=== PATIENT | male | born 1940 | race Caucasian/White ===

== ENCOUNTER 2018-03-24 12:11 | Inpatient (IN) | payer OTHER, MEDICAID ==
[~2018-03-24] VITALS: Ht 198.1 cm; Wt 112.0 kg
[2018-03-24 08:05] VITALS: BP_SYST 170
[~2018-03-24 12:11] MED LIST: GLUCAGON,HUMAN RECOMBINANT 1 MG VIAL IV ONE; LR 1,000 ML IV.SOLN IV ONE; MIDAZOLAM HCL 5 MG/5 ML VIAL IVP ONE; PROPOFOL 200MG/ 20ML VIAL (DIPRIVAN) IV ONE; WATER FOR IRRIGATION,STERILE 1,000 ML IRRIG.SOLN IR ONE
[2018-03-24 12:17] VITALS: BP_SYST 165
[2018-03-24] MEDS ORDERED: NACL 0.9% 1,000 ML IV ONE (12:24)
[2018-03-24] MEDS ORDERED: ONDANSETRON HCL 4 MG/2 ML VIAL IVP ONE (12:30)
[2018-03-24] MEDS ORDERED: KETOROLAC TROMETHAMINE 30 MG VIAL IVP ONE (12:30)
--- NOTE | 2018-03-24 12:35 | NUR ---
Placed in room 06. Placed on cardiac care unit nurse, blood pressure machine and pulse oximeter. To gown for exam. Side rails up.
--- NOTE | 2018-03-24 12:42 | NUR ---
Pt AAOx4, fijian speaking only, c/o 01/13 RLQ pain x 2-3 days accompanying N/V. Skin pink dry and warm, breathing even and unlabored. No other injuries/complaints per pt/noted. Will continue to monitor.
--- NOTE | 2018-03-24 12:48 | NUR ---
ER Dr. Chappell at bedside examining patient.
[2018-03-24 13:03] LABS: ANION GAP 14 (5-15); CHLORIDE 99 mmol/L (98-107); CREATININE 1.11 mg/dL (0.55-1.30); GLUCOSE 138 mg/dL (70-99); POTASSIUM 3.4 mmol/L (3.5-5.1); SODIUM SERUM 136 mmol/L (136-145); UREA NITROGEN, BLOOD 15 mg/dL (8-21)
--- NOTE | 2018-03-24 13:03 | NUR ---
Pt states he is full code
[2018-03-24 13:08] LABS: INR 1.3 (0.80-1.20); PROTHROMBIN TIME 13.2 SECS (9.5-12.5)
[2018-03-24 13:12] LABS: ALANINE AMINOTRANSFERASE 52 U/L (12-78); ALBUMIN 3.7 g/dL (3.4-4.8); ASPARTATE AMINOTRANSFERASE 43 U/L (10-37); LIPASE 46 U/L (73-393); TOTAL BILIRUBIN 3.9 mg/dL (0.0-1.0)
[2018-03-24 13:18] LABS: HEMOGLOBIN 17.8 g/dL (14.0-18.0); MEAN CORPUSCULAR HEMOGLOBIN 29 pg (27-31); MEAN CORPUSCULAR HGB CONC 34 % (32-36); MEAN CORPUSCULAR VOLUME 86 fL (79.0-98.0); PLATELET COUNT (AUTO) 224 K/uL (130-430); RED BLOOD CELL COUNT(AUTO) 6.18 MIL/uL (4.2-6.2); RED CELL DISTRIBUTION WIDTH 13.3 % (9.0-15.0); WHITE BLOOD COUNT (AUTO) 25.7 K/uL (4.8-10.8)
[2018-03-24 13:36] LABS: BAND % (MANUAL) 15 % (0-6); BASOPHILS % (MANUAL) 0 % (0-2); EOSINOPHILS % (MANUAL) 0 % (0-7); LYMPHOCYTES % (MANUAL) 5 % (20-46); MONOCYTES % (MANUAL) 5 % (0-11)
[2018-03-24] MEDS ORDERED: MULT-1117 PO (13:47)
[2018-03-24] MEDS ORDERED: DABI150C PO (13:47)
[2018-03-24] MEDS ORDERED: LISI-600 PO (13:47)
[2018-03-24] MEDS ORDERED: TAMS-11 PO (13:47)
[2018-03-24] MEDS ORDERED: ALBMDI INH (13:47)
[2018-03-24] MEDS ORDERED: XALEYE OP (13:47)
[2018-03-24] MEDS ORDERED: FINA5TAB3 PO (13:47)
[2018-03-24] MEDS ORDERED: POTA8TAB4 PO (13:47)
[2018-03-24] MEDS ORDERED: PROM6.25 PO (13:47)
[2018-03-24] MEDS ORDERED: CETI1TAB2 PO (13:47)
[2018-03-24] MEDS ORDERED: METO25TA3 PO (13:47)
[2018-03-24] MEDS ORDERED: FURO-149 PO (13:47)
--- NOTE | 2018-03-24 13:48 | NUR ---
Medication reconciliation completed with information provided by [facility]. Any prior medication reconciliation on file was reviewed and corrected.
[2018-03-24] MEDS ORDERED: metroNIDAZOLE 500 mg/NS 100 ML IV ONE (14:00)
[2018-03-24] MEDS ORDERED: NACL 0.9% 2,000 ML IV ONE (14:00)
--- NOTE | 2018-03-24 14:30 | NUR ---
Pt mediated tolerated well.
[2018-03-24] MEDS: NACL 0.9% 1,000 ML IV SCH (15:15)
--- NOTE | 2018-03-24 15:29 | NUR ---
ADMISSION NOTE Received patient from ER via luigi, received report from STACY LAURENT. Patient admitted with diagnosis of ACUTE CHOLECYSTITIS. Patient oriented to hospital routine, call light, toileting and safety-patient verbalized understanding.
[2018-03-24] MEDS ORDERED: ACETAMINOPHEN 325 MG TABLET PO PRN (15:30)
[2018-03-24] MEDS ORDERED: ONDANSETRON HCL 4 MG/2 ML VIAL IVP PRN (15:30)
[2018-03-24 15:39] VITALS: BP_SYST 159
--- NOTE | 2018-03-24 15:45 | NUR ---
Patient will be admitted to care of Pauly Nava. Admitted to telemetry unit. Will go to room 119B. Belongings list completed. Summary report printed. Report will be given at bedside.
--- NOTE | 2018-03-24 16:08 | NUR ---
Initial Note patient resting in bed, awake and alert, family at bedside, breathing unlabored on room air, IV fluids infusing, pain upon palpation, educated patient on plan of care and on use of call light for assistance, verbalized understanding, call light and bedside table left within reach, will continue to monitor patient
--- NOTE | 2018-03-24 16:11 | NUR ---
CONSULTATION PAGED/CALLED Reason for Consultation: ASTHMA Person Who was Notified: DR. BARROW HERE AND INFORMED Consulting Physician: DR. BARROW Geriatric Nursing Assistant Specialty: PULMONARY Ordering Physician: DR. Ivanna COX
--- NOTE | 2018-03-24 16:17 | NUR ---
CONSULTATION CALLED Reason for Consultation: ABDOMINAL PAIN Person Who was Notified: MICHELE Consulting Physician: DR. SEVERINO-DR. VARELA LOG YARD MANAGER Ship Unloader Specialty: GI Ordering Physician: DR. ANISA COX
--- NOTE | 2018-03-24 16:30 | NUR ---
CONSULTATION CALLED Reason for Consultation: ATRIAL FIB Person Who was Notified: RUDY Consulting Physician: DR. MANJARREZ Office Support Associate Specialty: CARDIOLOGY Ordering Physician: DR. ANISA COX
--- NOTE | 2018-03-24 16:31 | NUR ---
CONSULTATION PAGED/CALLED Reason for Consultation: ACUTE CHOLECYSTITIS Person Who was Notified: JONAS Consulting Physician: DR. MARKS Broomcorn Thresher Specialty: SURGERY Ordering Physician: DR. ANISA COX
[2018-03-24 16:35] VITALS: BP_SYST 159
--- NOTE | 2018-03-24 16:51 | NUR ---
Dr. Garcia Rounds at this time, spoke with him over the phone earlier to update him with patient's diagnosis, will follow through with MD orders
--- NOTE | 2018-03-24 17:15 | NUR ---
Spoke with Joelle [facility] stated she will come by tomorrow at 1000 for HIDA scan, patient to be NPO after 0600 and no pain meds after 0600. Will inform shift manager nurse
[2018-03-24 17:30] VITALS: BP_SYST 150
[2018-03-24] MEDS: MORPHINE 2 MG/ML INJ. SYRINGE IVP PRN (17:38)
--- NOTE | 2018-03-24 17:40 | NUR ---
Antibiotics/Pain Meds/Zofran administered per protocol, educated patient regarding meds, verbalized understanding, tolerated well, IV site remains patent, safety precautions remain in place, bedside table and call light left within reach, will continue to monitor patient
[2018-03-24] MEDS: PIPERACILLIN/TAZO 3.375 GM in NS 50 ML IV SCH ×2 (18:04→23:51)
--- NOTE | 2018-03-24 18:55 | NUR ---
Closing Note patient resting in bed, eyes closed, breathing unlabored on room air, IV fluids infusing at this time, site patent, patient still on NPO status, safety precautions remain in place, bedside table and call light left within reach, will endorse to windows migration technician nurse
--- NOTE | 2018-03-24 19:45 | NUR ---
Opening notes Patient is resting in bed. Shows no signs of distress. Breathing is even and unlabored on room air. No needs at this moment. Bed is in the lowest position, bed rails up x3, bed alarm is on, call light is with the patient.
[2018-03-24 20:00] VITALS: BP_SYST 170
[2018-03-24] MEDS: ALBUTEROL SULFATE 0.083% 2.5 MG/3 ML VIAL.NEB INH SCH (20:00)
[2018-03-24] MEDS: IPRATROPIUM BROM 0.5 MG/2.5 ML VIAL.NEB (ATROVENT) INH SCH (20:00)
[2018-03-24] MEDS: CARVEDILOL 3.125 MG TABLET (COREG) PO SCH (20:51)
[2018-03-24] MEDS: MORPHINE 4 MG/ML INJ. SYRINGE IVP PRN (20:52)
[2018-03-24] MEDS: LATANOPROST 2.5 ML DROPS (XALATAN) OP SCH (20:54)
--- NOTE | 2018-03-24 20:55 | NUR ---
IV Pain meds Patient complains of 9/10 pain to abdomen. Gave Morphine 4 mg IVP for severe pain. Patient tolerated well. Shows no signs of allergic reaction.
--- NOTE | 2018-03-24 23:00 | NUR ---
RN rounds Patient is asleep in bed. Shows no signs of distress. Breathing is even and unlabored. Safety precautions in place.
[2018-03-25 00:54] VITALS: BP_SYST 121
--- NOTE | 2018-03-25 01:10 | NUR ---
RN rounds Patient is asleep in bed. Shows no signs of distress. Breathing is even and unlabored. No needs at this moment. Safety precautions in place.
--- NOTE | 2018-03-25 03:20 | NUR ---
RN rounds Patient is resting comfortably in bed. Shows no signs of distress. Does not complain of pain. Breathing is even and unlabored on room air. Safety precautions are in place.
[2018-03-25] MEDS: NACL 0.9% 1,000 ML IV SCH ×3 (04:41→23:12)
[2018-03-25] MEDS: MORPHINE 2 MG/ML INJ. SYRINGE IVP PRN ×2 (04:45→16:38)
--- NOTE | 2018-03-25 04:45 | NUR ---
RN rounds Patient complains of 4/10 pain to the abdomen. Gave Morphine 2 mg IVP for moderate pain. Patient tolerated well. No signs of allergic reaction noted.
[2018-03-25] MEDS: PIPERACILLIN/TAZO 3.375 GM in NS 50 ML IV SCH ×4 (05:33→23:07)
--- NOTE | 2018-03-25 06:45 | NUR ---
Closing notes Patient is resting comfortably in bed. Shows no signs of distress. Does not complain of pain. No needs at this moment. Breathing is even and unlabored on room air. Practice guidelines met throughout the shift. Bed is in the lowest position, bed rails up x3, bed alarm is on, call light is with the patient.
--- NOTE | 2018-03-25 07:00 | NUR ---
IV RE-INSERTION: Complaining of pain to IV site. Restarted on the left forearm with 20 gauge catheter. Successful after 1 attempt. Resumed current IVF of NS and regulated @ 75 per hour. Will observe for any signs of infiltration.
--- NOTE | 2018-03-25 07:25 | NUR ---
Opening Note patient resting in bed, awake and alert, no complaints of pain at this time, breathing unlabored on room air, IV fluids infusing at this time, educated patient on use of call light for assistance, verbalized understanding, call light and bedside table left within reach, safety precautions in place, will continue to monitor patient
[2018-03-25] MEDS: ALBUTEROL SULFATE 0.083% 2.5 MG/3 ML VIAL.NEB INH SCH ×3 (07:28→20:03)
[2018-03-25] MEDS: IPRATROPIUM BROM 0.5 MG/2.5 ML VIAL.NEB (ATROVENT) INH SCH ×3 (07:28→20:03)
--- NOTE | 2018-03-25 07:40 | NUR ---
Dr. Gail Mahajan stated placed order for MRI MRCP because patient does not have pacemaker, stated to clarify with Dr. Garcia if HIDA still necessary, will ask Addendum: 03/25/18 at 0751 by Alissa Mercado RN also stated when not on NPO status for procedure may have clear liquids
[2018-03-25 07:44] LABS: BASOPHILS % (AUTO) 0.2 % (0.0-2.0); HEMATOCRIT 45.4 % (36-54); LYMPHOCYTES # (AUTO) 0.5 K/uL (1.0-5.5); LYMPHOCYTES % (AUTO) 3.8 % (20.5-51.5); MEAN CORPUSCULAR HEMOGLOBIN 29 pg (27-31); MEAN CORPUSCULAR HGB CONC 33 % (32-36); MEAN CORPUSCULAR VOLUME 86 fL (79.0-98.0); MONOCYTES # (AUTO) 0.4 K/uL (0.0-1.0); MONOCYTES % (AUTO) 3.1 % (1.7-9.3); NEUTROPHILS # (AUTO) 13.5 K/uL (1.8-7.7); PLATELET COUNT (AUTO) 186 K/uL (130-430); RED BLOOD CELL COUNT(AUTO) 5.26 MIL/uL (4.2-6.2); RED CELL DISTRIBUTION WIDTH 13.7 % (9.0-15.0); WHITE BLOOD COUNT (AUTO) 14.4 K/uL (4.8-10.8)
--- NOTE | 2018-03-25 07:47 | NUR ---
Spoke with Dr. Garcia asked if he still wanted HIDA scan, cancelled order, stated to keep patient NPO but okay to give PO medications with small sips of water, will implement
[2018-03-25 07:53] LABS: ALANINE AMINOTRANSFERASE 42 U/L (12-78); ALBUMIN 2.7 g/dL (3.4-4.8); ANION GAP 10 (5-15); ASPARTATE AMINOTRANSFERASE 38 U/L (10-37); CALCIUM 9.1 mg/dL (8.4-11.0); CHLORIDE 106 mmol/L (98-107); CREATININE 0.97 mg/dL (0.55-1.30); GLUCOSE 110 mg/dL (70-99); SODIUM SERUM 138 mmol/L (136-145); TOTAL BILIRUBIN 2.6 mg/dL (0.0-1.0); UREA NITROGEN, BLOOD 19 mg/dL (8-21)
[2018-03-25 07:56] LABS: NEUTROPHILS % (AUTO) 92.9 % (40.0-70.0)
[2018-03-25 08:02] VITALS: BP_SYST 143
--- NOTE | 2018-03-25 08:15 | NUR ---
MRI questionnaire Signed used blue phone mill set up, will ask Dr. Martinez for medication for anxiety for patient because of claustrophobia
[2018-03-25] MEDS: TAMSULOSIN HCL 0.4 MG CAP PO SCH (09:00)
[2018-03-25] MEDS: POTASSIUM CHLORIDE 10 MEQ TAB.PRT.SR PO SCH (09:00)
[2018-03-25] MEDS: CARVEDILOL 3.125 MG TABLET (COREG) PO SCH ×2 (09:00→21:42)
[2018-03-25] MEDS: FUROSEMIDE 40 MG TABLET PO SCH (09:00)
[2018-03-25] MEDS: FINASTERIDE 5 MG TABLET (PROSCAR) PO SCH (09:00)
[2018-03-25] MEDS: LISINOPRIL 20 MG TABLET PO SCH (09:00)
--- NOTE | 2018-03-25 09:30 | NUR ---
Spoke with MRI stated okay to give morphine prior to MRI but patient still has to be NPO, still awaiting Dr. Martinez call back for PRN anxiety medication for claustrophobia
--- NOTE | 2018-03-25 09:33 | NUR ---
Paged Dr. Martinez again at this time, awaiting call back
[2018-03-25] MEDS: NITROGLYCERIN 0.2 MG/HR PATCH.TD24 TD SCH (09:41)
[2018-03-25] MEDS: PANTOPRAZOLE SODIUM 40 MG/VIAL (PROTONIX) IVP SCH (09:42)
[2018-03-25] MEDS: MORPHINE 4 MG/ML INJ. SYRINGE IVP PRN (09:42)
--- NOTE | 2018-03-25 09:44 | NUR ---
Nutrition Update Tushar Scale 18 noted. Pt admitted for acute cholecystitis. Diet: NPO BMI: 28.5 kg/m2 RD to follow per nutrition care standards.
[2018-03-25] MEDS ORDERED: LORazepam 2 MG/ML VIAL IVP PRN (09:45)
[2018-03-25] MEDS ORDERED: LORazepam 2 MG/ML VIAL IVP ONE (10:00)
--- NOTE | 2018-03-25 11:00 | NUR ---
Ativan administered educated patient using goat herder phone, verbalized understanding, IV site patent, fluids infusing as well, safety precautions remain in place, bedside table and call light left within reach, will continue to monitor patient
--- NOTE | 2018-03-25 11:30 | NUR ---
Patient Off Unit at this time for MRI MRCP, will assess when he returns
[2018-03-25 12:15] VITALS: BP_SYST 120
--- NOTE | 2018-03-25 13:40 | NUR ---
Patient Resting in Bed at this time, visitors at bedside, stated pain is controlled at this time, at a 2/10, breathing unlabored on room air, IV fluids infusing at this time, safety precautions remain in place, bedside table and call light left within reach, will continue to monitor patient
--- NOTE | 2018-03-25 13:47 | NUR ---
Dr. Garcia At nurses' station stated bilirubin too high to do anything at this point and will wait until after assessing labs tomorrow, stated may give patient clear liquid diet
--- NOTE | 2018-03-25 14:30 | NUR ---
Provided Patient with Water/Jello tolerated well, no complaints of nausea or pain at this time, breathing unlabored on room air and IV fluids infusing, safety precautions remain in place, bedside table and call light left within reach, will continue to monitor patient
[2018-03-25 16:05] VITALS: BP_SYST 131
--- NOTE | 2018-03-25 16:07 | NUR ---
Paged Dr. Ventura at this time for patient's heart rate, will await call back
[2018-03-25] MEDS ORDERED: METOPROLOL SUCCINATE 25 MG TAB.SR.24H (TOPROL XL) PO ONE (16:30)
--- NOTE | 2018-03-25 17:04 | NUR ---
Ju educated patient on medication, verbalized understanding, IV site remains patent, patient sitting up in bed, no complaints of pain, safety precautions remain in place, bedside table and call light left within reach, will continue to monitor patient
--- NOTE | 2018-03-25 18:05 | NUR ---
Patient Eating clear liquid tray at this time, tolerating well, states his pain is 0/10. breathing unlabored on room air, IV fluids infusing, site patent, safety precautions remain in place, bedside table and call light left within reach, will continue to monitor patient
--- NOTE | 2018-03-25 18:50 | NUR ---
Closing Note patient resting in bed, family at bedside, no signs of distress, IV fluids infusing at this time, safety precautions remain in place, bedside table and call light left within reach, will endorse to police shift commander nurse
--- NOTE | 2018-03-25 19:42 | NUR ---
Initial note: Received handoff report from dayshift RN. Patient is resting in bed with eyes closed. Family members are present at bedside. IV noted to left forearm with IV fluids infusing well. Safety and fall precautions in place. Call light is with patient. Will continue with plan of care.
[2018-03-25 20:50] VITALS: BP_SYST 129
--- NOTE | 2018-03-25 21:42 | NUR ---
Medication: Administered scheduled medications per MD order at this time. Provided education regarding indications and side effects, patient verbalized understanding. Safety and fall precautions in place. Call light is with patient Will continue to monitor.
[2018-03-25] MEDS: LATANOPROST 2.5 ML DROPS (XALATAN) OP SCH (21:43)
[2018-03-25] MEDS: METOPROLOL SUCCINATE 25 MG TAB.SR.24H (TOPROL XL) PO SCH (22:26)
--- NOTE | 2018-03-25 23:29 | NUR ---
Rounds: Patient is resting in bed with eyes closed, not showing any acute distress. Patient tolerating room air, respirations are even and unlabored. Safety and fall precautions in place. Call light is with patient. Will continue to monitor.
[2018-03-26 01:04] VITALS: BP_SYST 132
--- NOTE | 2018-03-26 01:22 | NUR ---
Rounds: Patient is asleep in bed, no signs or symptoms of acute distress noted. Respirations are even and unlabored on room air. Call light is with patient. Safety, fall precautions in place. Will continue to monitor.
[2018-03-26] MEDS: MORPHINE 4 MG/ML INJ. SYRINGE IVP PRN ×2 (03:16→12:42)
--- NOTE | 2018-03-26 03:16 | NUR ---
Pain management: Patient complained of 8/10 pain to right lower abdominal quadrant. PRN Morphine indicated. Education provided regarding indications and side effects of medication, patient verbalized understanding. Administered medication intravenously med MD order, patient tolerated well. Safety, fall precautions in place. Will continue monitoring.
--- NOTE | 2018-03-26 05:20 | NUR ---
Rounds: Patient is asleep in bed, does not show any signs or symptoms of acute distress. Breathing is unlabored with even chest rise and fall. Safety, fall precautions in place. Call light is with patient. Will continue monitoring.
[2018-03-26] MEDS: PIPERACILLIN/TAZO 3.375 GM in NS 50 ML IV SCH ×4 (05:25→23:41)
[2018-03-26 06:18] LABS: HEMATOCRIT 41.9 % (36-54); HEMOGLOBIN 13.5 g/dL (14.0-18.0); MEAN CORPUSCULAR HEMOGLOBIN 28 pg (27-31); MEAN CORPUSCULAR HGB CONC 32 % (32-36); MEAN CORPUSCULAR VOLUME 86 fL (79.0-98.0); PLATELET COUNT (AUTO) 181 K/uL (130-430); RED BLOOD CELL COUNT(AUTO) 4.88 MIL/uL (4.2-6.2); RED CELL DISTRIBUTION WIDTH 13.6 % (9.0-15.0); WHITE BLOOD COUNT (AUTO) 11.4 K/uL (4.8-10.8)
[2018-03-26 06:26] LABS: ALANINE AMINOTRANSFERASE 42 U/L (12-78); ALBUMIN 2.5 g/dL (3.4-4.8); ANION GAP 8 (5-15); ASPARTATE AMINOTRANSFERASE 41 U/L (10-37); CALCIUM 8.9 mg/dL (8.4-11.0); CHLORIDE 107 mmol/L (98-107); CREATININE 1.17 mg/dL (0.55-1.30); GLUCOSE 117 mg/dL (70-99); POTASSIUM 3.7 mmol/L (3.5-5.1); SODIUM SERUM 137 mmol/L (136-145); TOTAL BILIRUBIN 1.7 mg/dL (0.0-1.0); UREA NITROGEN, BLOOD 36 mg/dL (8-21)
--- NOTE | 2018-03-26 06:42 | NUR ---
Closing note: Patient is awake, no acute distress noted. IV fluids infusing well to patient's left forearm IV site. Patient's breathing remains even and unlabored on room air. Site remains patent and benign. All needs met and attended to. Call light is with patient. Safety, fall precautions observed throughout shift. Will endorse care to dayshift RN.
[2018-03-26] MEDS: ALBUTEROL SULFATE 0.083% 2.5 MG/3 ML VIAL.NEB INH SCH ×3 (07:24→20:36)
[2018-03-26] MEDS: IPRATROPIUM BROM 0.5 MG/2.5 ML VIAL.NEB (ATROVENT) INH SCH ×3 (07:24→20:36)
--- NOTE | 2018-03-26 07:40 | NUR ---
OPENING NOTE: MORNING REPORT WAS TAKEN FROM PROJECT DEVELOPER NURSE. PATIENT IS ALERT AND ORIENTED. VITALS AND MORNING ASSESSMENT WAS DONE. PATIENT NOT COMPLAINING OF PAIN OR SHORTNESS OF BREATH. PATIENT ON ROOM AIR. PATIENT HAS A LITTLE COUGH. PATIENT NOT COMPLAINING OF NAUSEA OR VOMITING. PATIENT HAS SOME CONSTIPATION. BED ALARM IS ON AND CALL LIGHT IS IN REACH. BED IN LOWEST POSITION WITH SIDE RAILS UP. WILL CONTINUE TO MONITOR.
[2018-03-26 08:06] VITALS: BP_SYST 140
[2018-03-26 08:13] LABS: ATYPICAL LYMPHOCYTES % 0 % (0-0); BAND % (MANUAL) 36 % (0-6); BASOPHILS % (MANUAL) 0 % (0-2); EOSINOPHILS % (MANUAL) 0 % (0-7); LYMPHOCYTES % (MANUAL) 2 % (20-46); METAMYELOCYTES % 3 % (0-0); MONOCYTES % (MANUAL) 3 % (0-11); MYELOCYTES % 3 % (0-0)
[2018-03-26] MEDS: PANTOPRAZOLE SODIUM 40 MG/VIAL (PROTONIX) IVP SCH (09:16)
[2018-03-26] MEDS: METOPROLOL SUCCINATE 25 MG TAB.SR.24H (TOPROL XL) PO SCH ×2 (09:16→20:49)
[2018-03-26] MEDS: LISINOPRIL 20 MG TABLET PO SCH (09:16)
[2018-03-26] MEDS: POTASSIUM CHLORIDE 10 MEQ TAB.PRT.SR PO SCH (09:16)
[2018-03-26] MEDS: TAMSULOSIN HCL 0.4 MG CAP PO SCH (09:17)
[2018-03-26] MEDS: CARVEDILOL 3.125 MG TABLET (COREG) PO SCH ×2 (09:17→20:49)
[2018-03-26] MEDS: FUROSEMIDE 40 MG TABLET PO SCH (09:17)
[2018-03-26] MEDS: FINASTERIDE 5 MG TABLET (PROSCAR) PO SCH (09:18)
[2018-03-26] MEDS: NITROGLYCERIN 0.2 MG/HR PATCH.TD24 TD SCH (09:18)
--- NOTE | 2018-03-26 09:22 | NUR ---
NOTE: GAVE PATIENT MORNING MEDICATIONS. AT BEDSIDE. PATIENT SWALLOWED MORNING MEDS WITH OUT COMPLICATION. PATIENT JUST COMPLAINING OF CONSTIPATION. PATIENT STILL WEAK. WILL LET DR KNOW. PATIENT HAS NO FURTHER REQUESTS AT MOMENT. WILL CONTINUE TO MONITOR.
[2018-03-26] MEDS ORDERED: NA PHOS,M-B/NA PHOS,DI-BA 118 ML (FLEET ENEMA) RC ONE (10:45)
--- NOTE | 2018-03-26 10:45 | NUR ---
NOTE: DR MARKS HERE TO SEE PATIENT. LET DR KNOW PATIENT COMPLAINING OF CONSTIPATION. DR ORDERED ENEMA. GAVE PATIENT ENEMA. PATIENT LAYING ON SIDE WAITING TO USE RESTROOM. CALL LIGHT IS IN REACH. WILL CONTINUE TO MONITOR.
--- NOTE | 2018-03-26 11:55 | NUR ---
IV: PATIENT TRIED TO GET OUT OF BED TO USE BEDSIDE COMMODE. PATIENT PULLED IV OUT. PATIENT HAD BOWEL MOVEMENT. PATIENT STILL HAVING BOWEL MOVEMENT AND HELPED BY CREATIVE SERVICES SPECIALIST. WILL CONTINUE TO MONITOR AND PUT IV IN AFTER.
[2018-03-26 12:00] VITALS: BP_SYST 140; BP_SYST 83
--- NOTE | 2018-03-26 12:46 | NUR ---
NOTE: PATIENT WAS COMPLAINING OF PAIN. GAVE PATIENT PAIN MEDICATION. GAVE PATIENT SCHEDULED MEDICATION. IV WAS PUT IN BY AN. LEFT FOREARM 22G. FLUIDS ARE INFUSING. FAMILY AT BEDSIDE. WILL CONTINUE TO MONITOR.
--- NOTE | 2018-03-26 14:58 | NUR ---
SURGERY: PATIENT LEAVING NOW TO SURGERY. FAMILY AT BEDSIDE.
[2018-03-26] MEDS ORDERED: MIDAZOLAM HCL 5 MG/5 ML VIAL IVP ONE (15:00)
[2018-03-26] MEDS ORDERED: fentaNYL CITRATE 250 MCG/5 ML AMP IV ONE (15:00)
[2018-03-26] MEDS ORDERED: DEXAMETHASONE SOD PHOSPHATE 4 MG/ML VIAL IVP ONE (15:00)
[2018-03-26] MEDS ORDERED: ONDANSETRON HCL 4 MG/2 ML VIAL IVP ONE (15:00)
[2018-03-26] MEDS ORDERED: ROCURONIUM BROMIDE 10 MG/ML (ZEMURON) IV ONE (15:00)
[2018-03-26] MEDS ORDERED: SEVOFLURANE 15 MIN GAS INH ONE (15:00)
[2018-03-26] MEDS ORDERED: LR 1,000 ML IV.SOLN IV ONE (15:00)
[2018-03-26] MEDS ORDERED: KETOROLAC TROMETHAMINE 30 MG VIAL IVP ONE (15:00)
[2018-03-26] MEDS ORDERED: PROPOFOL 200MG/ 20ML VIAL (DIPRIVAN) IV ONE (15:00)
[2018-03-26] MEDS ORDERED: SUGAMMADEX SODIUM 200 MG/2 ML VIAL IV ONE (15:00)
[2018-03-26 15:37] LABS: BILIRUBIN,URINE NEGATIVE (NEGATIVE); BLOOD, URINE 1+ (NEGATIVE); CLARITY/URINE SL CLOUDY (CLEAR); COLOR,URINE AMBER (YELLOW); GLUCOSE,URINE NEGATIVE (NEGATIVE); KETONES,URINE NEGATIVE (NEGATIVE); LEUKOCYTE ESTERASE ,URINE NEGATIVE (NEGATIVE); NITRITE, URINE NEGATIVE (NEGATIVE); PH,URINE 5.5 (5.0-8.0); PROTEIN URINE 1+ (NEGATIVE)
[2018-03-26] MEDS ORDERED: LR 1,000 ML IV SCH (16:09)
[2018-03-26] MEDS ORDERED: HYDROmorphone 1 MG INJ. 1 MG/ML AMPUL IVP PRN (16:15)
[2018-03-26] MEDS ORDERED: MEPERIDINE HCL/PF 25 MG/ML DISP.SYRIN IVP PRN (16:15)
[2018-03-26] MEDS ORDERED: HYDROmorphone 2 MG/ML VIAL IVP PRN ×2 (16:15)
[2018-03-26 16:23] LABS: BACTERIA,URINE FEW /HPF (None Seen); COARSE GRANULAR CASTS,URINE 0-10 /LPF (None Seen); MUCUS,URINE 1+ /LPF (None Seen); RBC,URINE 0-3 /HPF (0-3); WBC,URINE 0-3 /HPF (0-3)
[2018-03-26 16:24] LABS: URINE AMORPHOUS URATE 1+ /HPF (None Seen)
--- NOTE | 2018-03-26 17:50 | NUR ---
PATIENT BACK FROM SURGERY. PATIENT HOOKED UP TO VITALS. PATIENT ON 2L NC. PATIENT NOT COMPLAINING OF PAIN AT MOMENT. FAMILY AT BEDSIDE. WILL CONTINUE TO MONITOR.
[2018-03-26] MEDS: NACL 0.9% 1,000 ML IV SCH (18:30)
[2018-03-26] MEDS: MORPHINE 2 MG/ML INJ. SYRINGE IVP PRN (18:44)
--- NOTE | 2018-03-26 18:55 | NUR ---
CLOSING NOTE: PATIENT HAS FLUIDS INFUSING. GAVE SCHEDULED MEDICATION. PATIENT WAS COMPLAINING OF PAIN. GAVE PATIENT PAIN MEDICATION. PATIENT ON 2L NC NOT COMPLAINING OF SHORTNESS OF BREATH. PATIENT'S DRESSING WAS GETTING SATURATED. PUT MORE GAUZE AND REENFORCED. DRAINED MARCI DRAIN. FAMILY AT BEDSIDE. BED ALARM IS ON AND CALL LIGHT IS IN REACH. WILL CONTINUE ENDORSE CARE TO GRAPE GROWER NURSE.
[2018-03-26 19:17] VITALS: BP_SYST 90
--- NOTE | 2018-03-26 19:50 | NUR ---
initial notes: pt is awake,alert, oriented x 3. Danish speaking. no pain at this time. no distress. vital sign are with in normal limit. pt has ivf ongoing to left fore arm gauge 22- infusing well. dressing to the abdomen are cdi. pt has liz drain- with red drainage-intact and in negative pressure. scd on bilateral feet. explain poc of care to daughter. needs attended. call ight in reach. side rails up. will monitor.
--- NOTE | 2018-03-26 20:17 | NUR ---
called dr. vásquez. spoke to md ask diet order. md order clear liquid. also report to md how much liz drain is out.
[2018-03-26 20:27] VITALS: BP_SYST 110
--- NOTE | 2018-03-26 20:40 | NUR ---
RT at bedside giving breathinfg treatment. rt will instruct the pt on how to use IS>
[2018-03-26] MEDS: LATANOPROST 2.5 ML DROPS (XALATAN) OP SCH (20:48)
--- NOTE | 2018-03-26 22:00 | NUR ---
notes: pt is resting. no sign of pain. no sob. no coughing at this time. stable. ivf infusing well. daughter at bedside. bed alarm on. call light in reach. side rails up. will continue to monitor.
[2018-03-26 23:43] VITALS: BP_SYST 103
--- NOTE | 2018-03-26 23:54 | NUR ---
notes: pt is wakes up when iv antibiotic given. vital sign are with normal limit. no pain. lzi drain to 80 cc, red drainage. needs attended. call light in reach. daughter at bedside. will continue to monitor.
[2018-03-27 00:02] VITALS: BP_SYST 110
--- NOTE | 2018-03-27 00:15 | NUR ---
PT IS AWAKE HE ASKED SOME FOOD HE GOT JELLO AND PUDDING.PT BACK TI SLEEP NOW.WILL CONTINUE OF MONITORING.
--- NOTE | 2018-03-27 02:15 | NUR ---
notes: pt is awake, alert. no distress. no pain. assisted to use urinal. stable on monitor. I.S. done by pt. needs attended. call light in reach. will continue to monitor.
[2018-03-27 04:22] VITALS: BP_SYST 119
--- NOTE | 2018-03-27 04:23 | NUR ---
notes: pt is awake, alert. complain of pain 8/10, educate pt and daughter about pain medication side effects. vital sign are stable. needs attended. call light in reach. will continue to monitor.
[2018-03-27] MEDS: MORPHINE 4 MG/ML INJ. SYRINGE IVP PRN ×2 (04:26→18:09)
[2018-03-27] MEDS: PIPERACILLIN/TAZO 3.375 GM in NS 50 ML IV SCH ×3 (05:48→18:46)
--- NOTE | 2018-03-27 05:50 | NUR ---
notes: pt is wakes up during round. no pain. no sob. iv antibiotic given. stable. liz drain empty. needs attended. call light in reach. daughter at bedside. will continue to monitor.
[2018-03-27 06:12] LABS: EOSINOPHILS % (AUTO) 0.1 % (0.0-4.0); HEMOGLOBIN 13.1 g/dL (14.0-18.0); MEAN CORPUSCULAR HEMOGLOBIN 28 pg (27-31); MEAN CORPUSCULAR HGB CONC 33 % (32-36); MONOCYTES # (AUTO) 0.7 K/uL (0.0-1.0); RED BLOOD CELL COUNT(AUTO) 4.66 MIL/uL (4.2-6.2)
[2018-03-27 06:23] LABS: ALANINE AMINOTRANSFERASE 82 U/L (12-78); ALBUMIN 2.3 g/dL (3.4-4.8); ANION GAP 12 (5-15); ASPARTATE AMINOTRANSFERASE 137 U/L (10-37); CALCIUM 8.8 mg/dL (8.4-11.0); CHLORIDE 106 mmol/L (98-107); GLUCOSE 121 mg/dL (70-99); LIPASE 72 U/L (73-393); POTASSIUM 3.4 mmol/L (3.5-5.1); SODIUM SERUM 140 mmol/L (136-145); TOTAL BILIRUBIN 1.7 mg/dL (0.0-1.0); UREA NITROGEN, BLOOD 40 mg/dL (8-21)
[2018-03-27 07:03] LABS: HEMATOCRIT 39.7 % (36-54); MEAN CORPUSCULAR VOLUME 85 fL (79.0-98.0); WHITE BLOOD COUNT (AUTO) 10.5 K/uL (4.8-10.8)
[2018-03-27 07:04] LABS: LYMPHOCYTES # (AUTO) 0.4 K/uL (1.0-5.5); MONOCYTES % (AUTO) 6.6 % (1.7-9.3); NEUTROPHILS # (AUTO) 9.4 K/uL (1.8-7.7); PLATELET COUNT (AUTO) 155 K/uL (130-430); RED CELL DISTRIBUTION WIDTH 13.8 % (9.0-15.0)
[2018-03-27 07:11] LABS: NEUTROPHILS % (AUTO) 89.3 % (40.0-70.0)
--- NOTE | 2018-03-27 07:30 | NUR ---
closing: pt is awake , alert. complain of slight pain. stable. ivf infusing well. liz is intact. liz site is wet again with blood after reinforce dressing. needs attended the whole shift. bed side report given to am fuad
[2018-03-27 07:45] VITALS: BP_SYST 90
[2018-03-27] MEDS: ALBUTEROL SULFATE 0.083% 2.5 MG/3 ML VIAL.NEB INH SCH ×3 (07:48→20:53)
[2018-03-27] MEDS: IPRATROPIUM BROM 0.5 MG/2.5 ML VIAL.NEB (ATROVENT) INH SCH ×3 (07:48→20:53)
--- NOTE | 2018-03-27 07:50 | NUR ---
AM ASSESSMENT RECEIVED PTIN BED ALERT/ORINETEDX4. TURKMEN SPEAKING. C/O OF ABD PAIN 09/12. RES EVEN AND UNLABORED. SITTING IN BED. IVF FLUID NS AT 75 INFUISNG WELL. IV SIDE L FA #22 PATENT.NO S/SOF INFILTRATION NOTED. . AND DRESSING RT SIDE WITH MARCI SATURATED WITH DARK RED BROWN COLOR DRAINAGE .REINFORCED RT SIDE ABD DRESSING WITH ABD PAD. MARCI DRAIN EMPTIED 100 ML OF DARK BROWN COLOR DRAINAGE. POC DISCUSSED WITH DAUGHTER AT BED SIDE. VERBALIZED UNDERSTANDING. SAFTY AND FALL PRECAUTIONS MAINTAINED. WILL CONTINUE TO MONITOR
[2018-03-27] MEDS: CARVEDILOL 3.125 MG TABLET (COREG) PO SCH ×2 (09:00→21:00)
[2018-03-27] MEDS: LISINOPRIL 20 MG TABLET PO SCH (09:00)
--- NOTE | 2018-03-27 09:00 | NUR ---
md visit seen by dr vásquez . informed about liz drainage output. dressing changed by nilesh. pt tolerated well. not in acute distress
[2018-03-27] MEDS: POTASSIUM CHLORIDE 10 MEQ TAB.PRT.SR PO SCH (09:23)
[2018-03-27] MEDS: TAMSULOSIN HCL 0.4 MG CAP PO SCH (09:23)
[2018-03-27] MEDS: FINASTERIDE 5 MG TABLET (PROSCAR) PO SCH (09:23)
[2018-03-27] MEDS: PANTOPRAZOLE SODIUM 40 MG/VIAL (PROTONIX) IVP SCH (09:24)
[2018-03-27] MEDS ORDERED: NS 250 ML IV ONE (09:45)
[2018-03-27] MEDS: MORPHINE 2 MG/ML INJ. SYRINGE IVP PRN (10:46)
--- NOTE | 2018-03-27 10:57 | NUR ---
pain pt c/o of abd pain 08/13. mediacated with morphine 2 mg as ordered. will reassess pt for pain again
[2018-03-27 12:00] VITALS: BP_SYST 112
[2018-03-27] MEDS: NACL 0.9% 1,000 ML IV SCH ×2 (14:24→22:43)
--- NOTE | 2018-03-27 15:09 | NUR ---
rt liz ryan dressing rt liz drain dressing saturated dressing changed. liz drain intact. liz drain emptied 110 ml dark red brown color drainage noted.pt repostioned. denies any pain at tis time.not in acute distress. will continue to monitor
[2018-03-27 16:00] VITALS: BP_SYST 117
--- NOTE | 2018-03-27 16:00 | NUR ---
md called called dr vásquez for liz drain output since morning 310 ml.red brown color drainage.informed dr vásquez.new order received .will continu to monitor
[2018-03-27 16:28] LABS: MEAN CORPUSCULAR HEMOGLOBIN 28 pg (27-31); MEAN CORPUSCULAR VOLUME 86 fL (79.0-98.0)
[2018-03-27 16:31] LABS: HEMATOCRIT 38.2 % (36-54); HEMOGLOBIN 12.4 g/dL (14.0-18.0); MEAN CORPUSCULAR HGB CONC 32 % (32-36); PLATELET COUNT (AUTO) 155 K/uL (130-430); RED BLOOD CELL COUNT(AUTO) 4.46 MIL/uL (4.2-6.2); RED CELL DISTRIBUTION WIDTH 14.1 % (9.0-15.0); WHITE BLOOD COUNT (AUTO) 11.1 K/uL (4.8-10.8)
[2018-03-27 16:41] LABS: ALBUMIN 2.1 g/dL (3.4-4.8); BILIRUBIN,DIRECT 0.8 mg/dL (0.0-0.3); TOTAL BILIRUBIN 1.6 mg/dL (0.0-1.0)
--- NOTE | 2018-03-27 17:01 | NUR ---
rounds pt stable resting comfortable. not in acute distress at bed side. will continue to monitor
[2018-03-27 17:05] LABS: BAND % (MANUAL) 18 % (0-6); BASOPHILS % (MANUAL) 0 % (0-2); EOSINOPHILS % (MANUAL) 0 % (0-7); LYMPHOCYTES % (MANUAL) 7 % (20-46); MONOCYTES % (MANUAL) 4 % (0-11)
--- NOTE | 2018-03-27 18:09 | NUR ---
pain pt c/o of pain abd 11/12. medicated with morphine 4 mg ivp as ordered. iv fluid infusing well. rt liz dressing saturated . new dressing applied. dressing clean dry and intact not in acute distress. will continue to monitor
--- NOTE | 2018-03-27 19:00 | NUR ---
closing notes pt stable pain better. resting comfortably . not in acute distress,ivf infuaing well. report given to scene shifter RN
--- NOTE | 2018-03-27 19:05 | NUR ---
OPENING NOTE RECEIVED ENDORSEMENT REPORT FROM DAY SHIFT NURSE GERA AT BEDSIDE. PT IS AOX4, RESTING COMFORTABLY IN BED WITH EYES OPEN. PT'S FAMILY AT BEDSIDE. CHEST RISE EVEN AND UNLABORED. NO SOB NOTED, NO DISTRESS NOTED. PT DENIED PAIN AT THIS TIME. PT'S IV ON LEFT FA 22G. IV CLEAN DRY AND INTACT. IVF INFUSING WELL. PT'S SKIN DRY AND CLEAN. DRESSING ON RIGHT ABD, DRESSING CLEAN, DRY AND INTACT. MARCI DRAIN ON RIGHT ABD, CLEAN AND INTACT. MARCI DRAIN DRAINING TO GRAVITY. DRAINAGE DARK RED FLUID. LEADS AND HEART MONITOR IN PLACE AND INTACT. SCDS ON ORDERED FOR DVT PROPHYLAXIS. VITAL SIGNS WNL. PT INSTRUCTED HOW TO USE CALL LIGHT AND ROOM PHONE, PT VERBALIZED UNDERSTANDING. PT ORIENTED TO HOSPITAL ROOM AND EDUCATED ON SAFETY, PT INSTRUCTED TO USE CALL LIGHT TO CALL FOR ASSISTANCE, PT VERBALIZED UNDERSTANDING. SAFETY MEASURES IN PLACE CALL LIGHT/ROOM PHONE WITHIN REACH, BEDSIDE TABLE WITHIN REACH, BED WHEELS LOCKED, BED IN LOWEST POSITION, BED RAILS UP X3 AND BED ALARM ON. WILL CONTINUE TO MONITOR PT AND CONTINUE POC.
[2018-03-27 19:53] VITALS: BP_SYST 100
[2018-03-27] MEDS: LATANOPROST 2.5 ML DROPS (XALATAN) OP SCH (20:26)
--- NOTE | 2018-03-27 22:01 | NUR ---
RECHECKED BP RECHECKED BP @ 2156 BP 107/61, HR 100 PT REFUSED COREG
[2018-03-28] MEDS: PIPERACILLIN/TAZO 3.375 GM in NS 50 ML IV SCH ×4 (00:11→17:07)
[2018-03-28 00:13] VITALS: BP_SYST 128
--- NOTE | 2018-03-28 00:45 | NUR ---
RN ROUNDS PT RESTING COMFORTABLY IN BED WITH EYES OPEN. CHEST RISE EVEN AND UNLABORED. NO SOB NOTED, NO DISTRESS NOTED. PT DENIED PAIN AT THIS TIME. PT'S IVF INFUSING WELL. SCHEDULED ZOSYN ADMINISTERED AT ORDERED RATE. PT TOLERATED WELL. NO OTHER NEEDS AT THIS TIME. SAFETY MEASURES IN PLACE. WILL CONTINUE TO MONITOR PT AND CONTINUE POC.
--- NOTE | 2018-03-28 02:38 | NUR ---
RN ROUNDS PT RESTING COMFORTABLY IN BED WITH EYES CLOSED. CHEST RISE EVEN AND UNLABORED. NO SOB NOTED, NO DISTRESS NOTED. NO S/S OF PAIN NOTED. NO NEEDS AT THIS TIME. SAFETY MEASURES IN PLACE. WILL CONTINUE TO MONITOR PT AND CONTINUE POC.
--- NOTE | 2018-03-28 04:39 | NUR ---
RN ROUNDS PT RESTING COMFORTABLY IN BED WITH EYES CLOSED. CHEST RISE EVEN AND UNLABORED. NO SOB NOTED, NO DISTRESS NOTED. NO NEEDS AT THIS TIME. SAFETY MEASURES IN PLACE. WILL CONTINUE TO MONITOR PT AND CONTINUE POC.
--- NOTE | 2018-03-28 06:54 | NUR ---
RN ROUNDS PT RESTING COMFORTABLY IN BED WITH EYES CLOSED. CHEST RISE EVEN AND UNLABORED. NO SOB NOTED, NO DISTRESS NOTED. SAFETY MEASURES IN PLACE CALL LIGHT/ROOM PHONE WITHIN REACH, BEDSIDE TABLE WITHIN REACH, BED WHEELS LOCKED, BED IN LOWEST POSITION, BED RAILS UP X3 AND BED ALARM ON. WILL CONTINUE TO MONITOR PT AND CONTINUE POC.
[2018-03-28 07:37] LABS: BASOPHILS % (AUTO) 0.2 % (0.0-2.0); EOSINOPHILS # (AUTO) 0.1 K/uL (0.0-0.4); EOSINOPHILS % (AUTO) 0.9 % (0.0-4.0); HEMOGLOBIN 12.4 g/dL (14.0-18.0); LYMPHOCYTES # (AUTO) 0.8 K/uL (1.0-5.5); LYMPHOCYTES % (AUTO) 7.2 % (20.5-51.5); MEAN CORPUSCULAR HEMOGLOBIN 28 pg (27-31); MEAN CORPUSCULAR HGB CONC 33 % (32-36); MEAN CORPUSCULAR VOLUME 86 fL (79.0-98.0); MONOCYTES # (AUTO) 0.9 K/uL (0.0-1.0); MONOCYTES % (AUTO) 7.6 % (1.7-9.3); NEUTROPHILS # (AUTO) 9.8 K/uL (1.8-7.7); PLATELET COUNT (AUTO) 166 K/uL (130-430); RED BLOOD CELL COUNT(AUTO) 4.42 MIL/uL (4.2-6.2); RED CELL DISTRIBUTION WIDTH 13.6 % (9.0-15.0); WHITE BLOOD COUNT (AUTO) 11.6 K/uL (4.8-10.8)
--- NOTE | 2018-03-28 07:40 | NUR ---
OPENING NOTE PT AWAKE ALERT, NO DISTRESS NOTED. CALL LIGHT VISIBLY WITHIN REACH. BED ALARM IN PLACE WITH BED IN THE LOWEST POSITION. MARCI DRAIN THE RIGHT ABD NOTED, SATURATED RED NOTED.
[2018-03-28 07:46] LABS: NEUTROPHILS % (AUTO) 84.1 % (40.0-70.0)
--- NOTE | 2018-03-28 07:54 | NUR ---
CLOSING NOTE ENDORSED PT REPORT TO DAY SHIFT NURSE TERESE AT BEDSIDE. PT IS AOX4, RESTING COMFORTABLY IN BED WITH EYES OPEN. CHEST RISE EVEN AND UNLABORED. NO SOB NOTED, NO DISTRESS NOTED. ALL PT'S NEEDS MET THROUGHOUT SHIFT. ALL SCHEDULED MEDICATIONS ADMINISTERED ORDERED, PT TOLERATED WELL. MARCI DRAIN 50 ML. IVF INFUSING WELL. NO OTHER NEEDS AT THIS TIME. SAFETY MEASURES IN PLACE CALL LIGHT/ROOM PHONE WITHIN REACH, BEDSIDE TABLE WITHIN REACH, BED WHEELS LOCKED, BED IN LOWEST POSITION, BED RAILS UP X3 AND BED ALARM ON. WILL CONTINUE TO MONITOR PT AND CONTINUE POC.
[2018-03-28] MEDS: IPRATROPIUM BROM 0.5 MG/2.5 ML VIAL.NEB (ATROVENT) INH SCH ×3 (07:57→21:36)
[2018-03-28] MEDS: ALBUTEROL SULFATE 0.083% 2.5 MG/3 ML VIAL.NEB INH SCH ×3 (07:57→21:36)
[2018-03-28 08:01] LABS: ALANINE AMINOTRANSFERASE 87 U/L (12-78); ALBUMIN 1.9 g/dL (3.4-4.8); ANION GAP 8 (5-15); ASPARTATE AMINOTRANSFERASE 89 U/L (10-37); CALCIUM 8.9 mg/dL (8.4-11.0); CHLORIDE 105 mmol/L (98-107); CREATININE 0.98 mg/dL (0.55-1.30); GLUCOSE 116 mg/dL (70-99); LIPASE 364 U/L (73-393); POTASSIUM 3.9 mmol/L (3.5-5.1); SODIUM SERUM 138 mmol/L (136-145); TOTAL BILIRUBIN 1.9 mg/dL (0.0-1.0); UREA NITROGEN, BLOOD 33 mg/dL (8-21)
[2018-03-28 08:20] VITALS: BP_SYST 123
[2018-03-28] MEDS: LISINOPRIL 20 MG TABLET PO SCH (08:49)
[2018-03-28] MEDS: FINASTERIDE 5 MG TABLET (PROSCAR) PO SCH (08:49)
[2018-03-28] MEDS: PANTOPRAZOLE SODIUM 40 MG/VIAL (PROTONIX) IVP SCH (08:49)
[2018-03-28] MEDS: TAMSULOSIN HCL 0.4 MG CAP PO SCH (08:49)
[2018-03-28] MEDS: CARVEDILOL 3.125 MG TABLET (COREG) PO SCH ×2 (08:49→21:05)
--- NOTE | 2018-03-28 09:00 | NUR ---
am meds morning meds given pt tolerated well. no distress noted. dressing from liz site changed, very saturated. pt denies any pain/ sob
--- NOTE | 2018-03-28 11:00 | NUR ---
PATIENT RESTING: Patient resting quietly. No acute distress noted. Vital signs within normal range.
[2018-03-28 12:02] VITALS: BP_SYST 130
[2018-03-28] MEDS: NACL 0.9% 1,000 ML IV SCH ×2 (12:35→13:49)
[2018-03-28] MEDS: metroNIDAZOLE 500 mg/NS 100 ML IV SCH ×2 (13:49→21:06)
--- NOTE | 2018-03-28 13:52 | NUR ---
NEW IVF HUNG A THIS TIME. IVPB FLAGYL HUNG WELL. PT DENIES ANY PAIN/ SOB. SAFETY MAINTAINED.
[2018-03-28 15:04] VITALS: BP_SYST 130
--- NOTE | 2018-03-28 16:00 | NUR ---
dressing over liz drain, changed at this time.
[2018-03-28 16:02] VITALS: BP_SYST 132
--- NOTE | 2018-03-28 18:58 | NUR ---
closing note all needs met through shift, safety maintained. will endorse care to security shift supervisor.
--- NOTE | 2018-03-28 19:27 | NUR ---
OPENING NOTE Received report from Loni. Patient resting in bed awake, alert, oriented x4. Breathing unlabored and even on room air. No signs of distress, no needs at this time. Fall and safety precautions in place. Bed in lowest position, brake on, alarm on, call light within reach. IVF infusing a ordered. Family at the bedside. Will continue to monitor.
[2018-03-28] MEDS: MORPHINE 2 MG/ML INJ. SYRINGE IVP PRN (19:58)
--- NOTE | 2018-03-28 20:01 | NUR ---
Patient c/o pain. Administered PRN morphine 2mg IVP as ordered.
[2018-03-28 20:30] VITALS: BP_SYST 151
[2018-03-28] MEDS: LATANOPROST 2.5 ML DROPS (XALATAN) OP SCH (21:06)
--- NOTE | 2018-03-28 21:06 | NUR ---
Med pass. IV abx hung
--- NOTE | 2018-03-28 23:31 | NUR ---
Patient resting in bed with eyes closed. Breathing unlabored and even on room air. No signs of distress, no needs at this time. Fall and safety precautions in place. Bed in lowest position, brake on, alarm on, call light within reach. IVF infusing a ordered. at the bedside. Will continue to monitor.
--- NOTE | 2018-03-29 00:15 | NUR ---
Patient c/o cough and sputum. Will request PRN breathing treatment
[2018-03-29] MEDS: PIPERACILLIN/TAZO 3.375 GM in NS 50 ML IV SCH ×5 (00:18→23:33)
[2018-03-29] MEDS: ALBUTEROL SULFATE 0.083% 2.5 MG/3 ML VIAL.NEB INH PRN (00:18)
[2018-03-29] MEDS: MORPHINE 4 MG/ML INJ. SYRINGE IVP PRN (00:18)
--- NOTE | 2018-03-29 00:25 | NUR ---
Patient c/o pain. Administered PRN morphine 4mg IVP as ordered. IV abx hung. Patient currently receiving breathing treatment.
[2018-03-29 00:39] VITALS: BP_SYST 110
--- NOTE | 2018-03-29 03:23 | NUR ---
Patient's abd pad was saturated. Changed abd pad surrounding liz drain. Patient tolerated well.
--- NOTE | 2018-03-29 05:54 | NUR ---
IV abx hung
[2018-03-29 05:59] LABS: BASOPHILS % (AUTO) 0.3 % (0.0-2.0); EOSINOPHILS # (AUTO) 0.2 K/uL (0.0-0.4); EOSINOPHILS % (AUTO) 1.9 % (0.0-4.0); HEMATOCRIT 33.8 % (36-54); HEMOGLOBIN 11.3 g/dL (14.0-18.0); LYMPHOCYTES # (AUTO) 0.7 K/uL (1.0-5.5); LYMPHOCYTES % (AUTO) 9.1 % (20.5-51.5); MEAN CORPUSCULAR HEMOGLOBIN 29 pg (27-31); MEAN CORPUSCULAR HGB CONC 34 % (32-36); MEAN CORPUSCULAR VOLUME 87 fL (79.0-98.0); MONOCYTES # (AUTO) 0.8 K/uL (0.0-1.0); MONOCYTES % (AUTO) 9.6 % (1.7-9.3); NEUTROPHILS # (AUTO) 6.5 K/uL (1.8-7.7); NEUTROPHILS % (AUTO) 79.1 % (40.0-70.0); PLATELET COUNT (AUTO) 168 K/uL (130-430); RED CELL DISTRIBUTION WIDTH 13.2 % (9.0-15.0); WHITE BLOOD COUNT (AUTO) 8.2 K/uL (4.8-10.8)
[2018-03-29] MEDS: NACL 0.9% 1,000 ML IV SCH (06:06)
--- NOTE | 2018-03-29 06:08 | NUR ---
new IVF hung
[2018-03-29] MEDS: metroNIDAZOLE 500 mg/NS 100 ML IV SCH ×3 (06:33→21:02)
--- NOTE | 2018-03-29 06:35 | NUR ---
IV abx hung. Chris drain emptied. 5mL of bloody drainage noted
[2018-03-29 06:43] LABS: ALANINE AMINOTRANSFERASE 59 U/L (12-78); ALBUMIN 1.5 g/dL (3.4-4.8); ANION GAP 7 (5-15); ASPARTATE AMINOTRANSFERASE 35 U/L (10-37); CALCIUM 8.2 mg/dL (8.4-11.0); CHLORIDE 109 mmol/L (98-107); CREATININE 0.85 mg/dL (0.55-1.30); GLUCOSE 108 mg/dL (70-99); POTASSIUM 3.4 mmol/L (3.5-5.1); SODIUM SERUM 141 mmol/L (136-145); TOTAL BILIRUBIN 1.8 mg/dL (0.0-1.0); UREA NITROGEN, BLOOD 23 mg/dL (8-21)
[2018-03-29] MEDS: IPRATROPIUM BROM 0.5 MG/2.5 ML VIAL.NEB (ATROVENT) INH SCH ×3 (07:19→21:12)
[2018-03-29] MEDS: ALBUTEROL SULFATE 0.083% 2.5 MG/3 ML VIAL.NEB INH SCH ×3 (07:19→21:12)
--- NOTE | 2018-03-29 07:28 | NUR ---
CLOSING NOTE Gave report to Meghana. Patient resting in bed with eyes closed. Breathing unlabored and even on room air. No signs of distress, no needs at this time. Fall and safety precautions in place. Bed in lowest position, brake on, alarm on, call light within reach. IVF infusing a ordered. at the bedside. Endorsed to day shift nurse.
[2018-03-29 08:00] VITALS: BP_SYST 111
--- NOTE | 2018-03-29 08:00 | NUR ---
Opening Note Report received from [facility] shift nurse. Patient is currently sleeping in bed. Patient is not in any distress at the moment. All four abdominal incisions are dry and intact. OMsignal MARCI drain is in place. Draining sanguinous drainage. There is large amount of drainage over the MARCI site. IV is on the RFA 20 saline locked. Call light is within reach and bed is in low position. Will continue to monitor.
[2018-03-29] MEDS ORDERED: BISACODYL 10 MG/SUPPOSITORY RC PRN (09:15)
[2018-03-29] MEDS: TAMSULOSIN HCL 0.4 MG CAP PO SCH (09:28)
[2018-03-29] MEDS: LISINOPRIL 20 MG TABLET PO SCH (09:28)
[2018-03-29] MEDS: CARVEDILOL 3.125 MG TABLET (COREG) PO SCH ×2 (09:38→21:03)
[2018-03-29] MEDS: PANTOPRAZOLE SODIUM 40 MG/VIAL (PROTONIX) IVP SCH (09:40)
[2018-03-29] MEDS: FINASTERIDE 5 MG TABLET (PROSCAR) PO SCH (09:41)
--- NOTE | 2018-03-29 10:12 | NUR ---
Rounds MARCI dressing was completely saturated. Changed dressing and informed Dr. Garcia, who is in the nurses station, regarding the drainage.
[2018-03-29 11:34] VITALS: BP_SYST 104
--- NOTE | 2018-03-29 12:45 | NUR ---
Rounds Patient is resting in bed. Call light is within reach.
--- NOTE | 2018-03-29 14:15 | NUR ---
Rounds Patient is currently resting in bed. No signs of distress noted at the moment.
[2018-03-29 16:07] VITALS: BP_SYST 115
--- NOTE | 2018-03-29 16:08 | NUR ---
Rounds Patient is currently sleeping in bed. Call light is within reach.
--- NOTE | 2018-03-29 18:20 | NUR ---
Closing Note Patient is currently resting in bed. MARCI site continues to drain large amounts of drainage. Dressing was changed three times. MARCI drain is draining sanguinous fluid. Four abdominal incisional dressings are dry and intact. IV is on the RFA 22g running NS@75. Call light is within reach and bed is in low position. Will endorse care to the oncoming nurse.
[2018-03-29 19:11] VITALS: BP_SYST 115
--- NOTE | 2018-03-29 19:11 | NUR ---
Opening Note Bedside SBAR report received from Meghana vu RN. Patient is awake/alert/oriented with his family members bedside. IV site noted to RFA 22G, infusing NS @75ml/hr with no signs of redness/infiltration. O2 NC applied/flowing @ 2L, saturating 100% SCD's not applied, educated and reapplied. MARCI drain noted to RUQ with approx 5ml dark brown drainage. Dressing sites are all clean/dry/intact. Introduced myself, updated whiteboard, discussed plan of care. Bed to lowest position, 2 upper side rails raised bilaterally, call light within reach, bed alarm not activated per patient request. Will continue to monitor patient.
--- NOTE | 2018-03-29 20:13 | NUR ---
Assisted patient to bedside commode then safely back to bed.
[2018-03-29] MEDS: LATANOPROST 2.5 ML DROPS (XALATAN) OP SCH (21:01)
--- NOTE | 2018-03-29 21:12 | NUR ---
small engine technician currently in with patient administering breathing treatment.
--- NOTE | 2018-03-29 22:25 | NUR ---
Rounds Patient is resting, eyes close with no acute distress noted. Family member is bedside. No shortness of breath and no labored breathing. IV site is clean/dry/intact, with no signs of infiltration. SCD's applied/functioning. MARCI drain draining properly. 02 applied/flowing Bed to lowest position, 2 upper side rails raised bilaterally, call light within reach, bed alarm activated.
[2018-03-29 23:25] VITALS: BP_SYST 132
--- NOTE | 2018-03-30 00:29 | NUR ---
Rounds Patient is resting, eyes closed but easily arouses to light stimulation. Symmetric rise and fall of chest with non-labored respirations @ 16/min. IV site is clean/dry/intact currently infusing NS @ 75ml/hr as ordered. SCD's applied/functioning. MARCI drain draining properly. 02 applied/flowing @ 2LNC Bed to lowest position, 2 upper side rails raised bilaterally, call light within reach, bed alarm activated.
--- NOTE | 2018-03-30 02:52 | NUR ---
Abdominal dressing saturated Large amount of light brown/yellow drainage fully saturated abdominal dressing and (3) woven g-tube dressings Replaced site with (3) woven g-tube dressings and abdominal dressing. Per dayshift RN, Meghana same saturation with her and she made Dr. Garcia and Dr. Owen aware. MARCI drain has approx 10ml maroon drainage at this time. Will continue to monitor site.
--- NOTE | 2018-03-30 04:26 | NUR ---
Rounds Patient is resting, eyes closed with no notice of any acute distress. Symmetric rise and fall of chest with non-labored respirations @ 16/min. IV site is clean/dry/intact currently infusing NS @ 75ml/hr as ordered. No signs of redness or infiltration. SCD's applied/functioning. MARCI drain has approx 10ml maroon drainage. Bed to lowest position, 2 upper side rails raised bilaterally, call light within reach, bed alarm activated.
[2018-03-30] MEDS: NACL 0.9% 1,000 ML IV SCH ×2 (05:21→17:55)
[2018-03-30] MEDS: PIPERACILLIN/TAZO 3.375 GM in NS 50 ML IV SCH ×4 (05:21→23:53)
[2018-03-30] MEDS: metroNIDAZOLE 500 mg/NS 100 ML IV SCH ×3 (05:21→21:07)
--- NOTE | 2018-03-30 06:24 | NUR ---
Abdominal dressing saturated Moderate amount of light brown/yellow drainage on abdominal dressing and (3) woven g-tube dressings Replaced site with (3) woven g-tube dressings and abdominal dressing. Will continue to monitor site and endorse to dayshift RN.
--- NOTE | 2018-03-30 07:09 | NUR ---
Closing Note Gave bedside sbar report to dayshift Meghana LAURENT Patient is awake/alert/oriented, family member bedside. No distress noted at this time. All needs/expectations/interventions met by nightshift RN. Transfer of care successful.
[2018-03-30 07:10] LABS: ALANINE AMINOTRANSFERASE 45 U/L (12-78); ALBUMIN 1.6 g/dL (3.4-4.8); ANION GAP 7 (5-15); ASPARTATE AMINOTRANSFERASE 23 U/L (10-37); CALCIUM 8.5 mg/dL (8.4-11.0); CHLORIDE 107 mmol/L (98-107); CREATININE 0.79 mg/dL (0.55-1.30); GLUCOSE 96 mg/dL (70-99); POTASSIUM 3.2 mmol/L (3.5-5.1); SODIUM SERUM 139 mmol/L (136-145); TOTAL BILIRUBIN 1.5 mg/dL (0.0-1.0); UREA NITROGEN, BLOOD 18 mg/dL (8-21)
[2018-03-30 08:00] VITALS: BP_SYST 135
[2018-03-30] MEDS ORDERED: POTASSIUM CHLORIDE 20 MEQ TAB.PRT.SR PO ONE (08:00)
--- NOTE | 2018-03-30 08:00 | NUR ---
Opening Note Report received from the [facility] shift nurse. Patient is currently resting in bed. There is still large amounts of drainage from the MARCI site. Abdominal incisions are dry and intact. IV is on the RFA 22g running NS@75. Right abdominal MARCI is draining brown fluid. Will continue to monitor.
[2018-03-30] MEDS: ALBUTEROL SULFATE 0.083% 2.5 MG/3 ML VIAL.NEB INH SCH ×3 (08:14→20:12)
[2018-03-30] MEDS: IPRATROPIUM BROM 0.5 MG/2.5 ML VIAL.NEB (ATROVENT) INH SCH ×3 (08:14→20:13)
[2018-03-30] MEDS: TAMSULOSIN HCL 0.4 MG CAP PO SCH (09:03)
[2018-03-30] MEDS: CARVEDILOL 3.125 MG TABLET (COREG) PO SCH ×2 (09:04→21:08)
[2018-03-30] MEDS: LISINOPRIL 20 MG TABLET PO SCH (09:04)
[2018-03-30] MEDS: FINASTERIDE 5 MG TABLET (PROSCAR) PO SCH (09:04)
[2018-03-30] MEDS: PANTOPRAZOLE SODIUM 40 MG/VIAL (PROTONIX) IVP SCH (09:04)
--- NOTE | 2018-03-30 10:20 | NUR ---
MD rounds Dr. Garcia rounded on the patient an ordered a HIDA scan for today.
--- NOTE | 2018-03-30 12:30 | NUR ---
Rounds Patient is resting in bed and is currently npo for a HIDA scan.
[2018-03-30 12:55] VITALS: BP_SYST 127
--- NOTE | 2018-03-30 13:19 | NUR ---
Dietitian Recommendations *Recommend Soft Low Fat diet w/ Ensure Enlive BID and Yan BID. Oral supplement will provide additional 860 kcal and 45 gm protein daily. Please see Nutritional Assessment for details. PATRICIA, RD
--- NOTE | 2018-03-30 14:38 | NUR ---
Rounds Patient patient is off the unit and in Nuc Med.
--- NOTE | 2018-03-30 16:00 | NUR ---
RN Notes Patient returned back to the unit from [facility].
[2018-03-30] MEDS ORDERED: MORPHINE 4 MG/ML INJ. SYRINGE IVP PRN (16:06)
[2018-03-30 16:30] VITALS: BP_SYST 134
--- NOTE | 2018-03-30 17:00 | NUR ---
RN Notes Patient is currently in [facility] for the final portion of the exam.
--- NOTE | 2018-03-30 17:45 | NUR ---
RN Notes Patient returned back to the unit exam is now complete.
--- NOTE | 2018-03-30 18:32 | NUR ---
Closing Note' Patient is currently sitting up in bed. MARCI dressing site has been changed three times today. Patient continues to drain brown fluid from the site and in the MARCI drain. IV is on the RFA 22g sl. Call light is within reach and bed is in low position. Will endorse care to the oncoming nurse.
--- NOTE | 2018-03-30 19:48 | NUR ---
Initial note: Received handoff report from dayshift RN. Patient is awake in bed, no signs or symptoms of acute distress noted. Alert and oriented x4. Patient is tolerating room air, denies difficulty breathing. Saline locked IV noted to patient's right forearm, site is patent and benign. MARCI drain noted to patient's right upper abdomen containing minimal amounts of brown drainage at this time. MARCI drain dressing is clean, dry, and intact. Bed is locked in lowest position, side rails raised, bed alarm on. Call light is with patient. Will continue with plan of care.
[2018-03-30 20:55] VITALS: BP_SYST 116
[2018-03-30] MEDS: LATANOPROST 2.5 ML DROPS (XALATAN) OP SCH (21:09)
--- NOTE | 2018-03-30 21:30 | NUR ---
Dressing changed: MARCI drain dressing changed, dressing had become saturated with dark yellow fluid. Placed 3 g-tube sterile gauze and covered with 2 abdominal pads. Patient tolerated well. Will continue to monitor dressing.
[2018-03-30 23:30] VITALS: BP_SYST 121
--- NOTE | 2018-03-30 23:45 | NUR ---
Rounds: Patient is awake, resting in bed. Does not show any signs or symptoms of acute distress. Denies pain or shortness of breath. MARCI drain dressing is clean, dry and intact. Call light is with patient. Will continue monitoring.
--- NOTE | 2018-03-31 01:37 | NUR ---
Dressing changed: Changed AMRCI drain dressing as existing dressing had become saturated. Placed 4 g-tube sterile gauze and covered with 2 abdominal pads. Patient tolerated well. Call light is with patient. Will continue to monitor.
--- NOTE | 2018-03-31 03:51 | NUR ---
Rounds: Patient is asleep in bed, does not show any signs or symptoms of acute distress. Patient's breathing is even, unlabored on room air. Call light is with patient. Will continue to monitor.
[2018-03-31] MEDS: metroNIDAZOLE 500 mg/NS 100 ML IV SCH ×3 (05:03→21:17)
--- NOTE | 2018-03-31 05:30 | NUR ---
IV inserted: Existing IV site had become dislodged, patient complained of pain at site upon flushing with NS. New IV access established to patient's left AC, 22 gauge. Successful after 1 attempt, patient tolerated well. Site flushes well with good blood return. Resumed IV antibiotics per MD order. Call light is with patient. Will continue to monitor.
--- NOTE | 2018-03-31 05:40 | NUR ---
Dressing changed/MARCI drai emptied: Existing MARCI drain dressing had become saturated with dark yellow fluid. Old dressing was removed and replaced with 4 g-tube sterile gauze and covered with 2 abdominal pads. Patient tolerated well. MARCI drain was also emptied, 25 ML of brown fluid removed. Call light is with patient. Will continue to monitor.
--- NOTE | 2018-03-31 06:15 | NUR ---
Closing note: Patient is resting in bed, no signs or symptoms of acute distress noted. IV antibiotics infusing well to patient's left AC, site remains patent and benign. MARCI drain dressing is clean, dry, and intact. All needs met and attended to. Safety, fall precautions observed. Call light is with patient. Will endorse care to dayshift RN.
[2018-03-31 07:13] LABS: ALANINE AMINOTRANSFERASE 45 U/L (12-78); ALBUMIN 1.7 g/dL (3.4-4.8); ANION GAP 6 (5-15); ASPARTATE AMINOTRANSFERASE 32 U/L (10-37); CALCIUM 8.6 mg/dL (8.4-11.0); CHLORIDE 110 mmol/L (98-107); CREATININE 0.75 mg/dL (0.55-1.30); GLUCOSE 103 mg/dL (70-99); POTASSIUM 3.4 mmol/L (3.5-5.1); SODIUM SERUM 143 mmol/L (136-145); TOTAL BILIRUBIN 1.3 mg/dL (0.0-1.0); UREA NITROGEN, BLOOD 13 mg/dL (8-21)
[2018-03-31] MEDS: IPRATROPIUM BROM 0.5 MG/2.5 ML VIAL.NEB (ATROVENT) INH SCH ×3 (07:32→20:18)
[2018-03-31] MEDS: ALBUTEROL SULFATE 0.083% 2.5 MG/3 ML VIAL.NEB INH SCH ×3 (07:32→20:18)
[2018-03-31 07:33] VITALS: BP_SYST 130
[2018-03-31 08:00] VITALS: BP_SYST 130
--- NOTE | 2018-03-31 08:00 | NUR ---
initial notes rec patient awake alert with ivl on the l ac intact. no infiltration noted. abd dressing on the r mid quadrant noted to be saturated. was cleaned around the area with warm washcloth from bile drainage and pat dry. covered with 1 pack of kerlix fluffs and abd's. will continue to monitor seen by dr alberto and dr le at bedside.
[2018-03-31] MEDS: PANTOPRAZOLE SODIUM 40 MG/VIAL (PROTONIX) IVP SCH (09:37)
[2018-03-31] MEDS: TAMSULOSIN HCL 0.4 MG CAP PO SCH (09:37)
[2018-03-31] MEDS: FINASTERIDE 5 MG TABLET (PROSCAR) PO SCH (09:37)
[2018-03-31] MEDS: LISINOPRIL 20 MG TABLET PO SCH (09:38)
[2018-03-31] MEDS: CARVEDILOL 3.125 MG TABLET (COREG) PO SCH ×2 (09:39→20:54)
--- NOTE | 2018-03-31 10:00 | NUR ---
rounds dressing changed on the liz site with bile colored drainage. keep patient dry and clean. up and sitting at bedside and ty well after walking with p.t/ no sob noted.
[2018-03-31] MEDS ORDERED: DIATR MEGLU/DIATRIZ SOD 30 ML SOLUTION PO ONE (11:43)
[2018-03-31 12:14] VITALS: BP_SYST 135
[2018-03-31] MEDS ORDERED: IOHEXOL 100 ML IV ONE (13:24)
--- NOTE | 2018-03-31 13:40 | NUR ---
rounds was taken to xray for ct abdomen with and without contrast. was picked by him , no sob noted.
--- NOTE | 2018-03-31 14:00 | NUR ---
rounds sleeps at intervals. dressing changed again on the liz site. scanty amount from the liz site with dark f=green drainage and dark yellowish drained leaking form the liz site. no sob noted.
--- NOTE | 2018-03-31 16:43 | NUR ---
DC Planning: s/w pt and his at bedside. Pt. can speak and understand Somali well. CM informed him about plan to discharge to snf. The pt. requested going to [facility] where he was before. The pt. still has large amt of MARCI drainage, He had HIDA scan today dt MARCI leaking at surgical site. There is no dcp order today.
[2018-03-31 16:49] VITALS: BP_SYST 133
--- NOTE | 2018-03-31 17:22 | NUR ---
rounds colostomy bag attached to the liz site to collect drain. okayed by rula wound nurse. noted with dark yellow fluid to the colostomy bag. no sob noted.
--- NOTE | 2018-03-31 18:40 | NUR ---
closing notes resting comforatbly in bed. denies pain. bed to the lowest position and side rails up and locked. call light within reached. no sob noted.
--- NOTE | 2018-03-31 19:34 | NUR ---
OPENING NOTES Pt and endorsement received from day shift nurse. Pt is AAOx4, speaks german, and lying in bed. Family at bedside. Pt on MARCI drain with visible brownish discharge on tubing and bulb, and maintained on continuous suction. No complains of pain and no signs of acute distress noted. Call light with pt, bed alarm on and at its lowest level. Will continue to monitor.
[2018-03-31 20:00] VITALS: BP_SYST 112
[2018-03-31] MEDS: LATANOPROST 2.5 ML DROPS (XALATAN) OP SCH (20:55)
--- NOTE | 2018-03-31 21:58 | NUR ---
MARCI DRAIN Emptied MARCI drain and colostomy bag that is attached to the incision of MARCI with 75 ml of brown to yellow output. Will continue to monitor.
--- NOTE | 2018-03-31 23:50 | NUR ---
RESTING Pt is resting in bed with both eyes closed. With visible chest rise and fall noted. Spouse Maria Esther at bedside. No signs of acute distress noted. Safety precautions in place and call light with pt. Will continue to monitor.
[2018-04-01 02:01] VITALS: BP_SYST 129
--- NOTE | 2018-04-01 02:02 | NUR ---
MARCI DRAIN LEAKAGE Pt's MARCI output leaked from colostomy bag that was improvised to catch leaking output from incision site, estimated around 20-30ml of brown to yellow output. All new linens and gown changed by HOUSING QUALITY STANDARD INSPECTOR. ANASTASIIA Kaminski changed new colostomy bag. Safety precautions in place and call light with pt. Will continue to monitor.
--- NOTE | 2018-04-01 04:00 | NUR ---
RESTING Pt is resting in bed with both eyes closed. With visible chest rise and fall noted. Spouse Maria Esther at bedside. No signs of acute distress noted. Call light with pt and safety precautions in place. Will continue to monitor.
[2018-04-01] MEDS: metroNIDAZOLE 500 mg/NS 100 ML IV SCH ×3 (05:09→21:20)
--- NOTE | 2018-04-01 06:38 | NUR ---
CLOSING NOTES Pt is awake, alert, and lying in bed. With spouse Maria Esther at bedside. MARCI drain and colostomy bag drained with 120ml of brown to yellow output. No complains of pain and no signs of any acute distress noted. All needs attended and safety precautions maintained throughout the shift. Will endorse to day shift nurse.
--- NOTE | 2018-04-01 07:15 | NUR ---
SEEN BY DR. VARELA Pt was seen by Dr. Varela and explained the procedure ERCP for tomorrow 04/02/18 at 0730. Pt will be NPO post midnight tonight. Will endorse to day shift nurse.
[2018-04-01] MEDS: IPRATROPIUM BROM 0.5 MG/2.5 ML VIAL.NEB (ATROVENT) INH SCH ×3 (07:19→21:37)
[2018-04-01] MEDS: ALBUTEROL SULFATE 0.083% 2.5 MG/3 ML VIAL.NEB INH SCH ×3 (07:19→21:38)
--- NOTE | 2018-04-01 07:35 | NUR ---
OPENING NOTE: MORNING REPORT WAS TAKEN FROM AIRCRAFT SERVICER NURSE. PATIENT IS ALERT AND ORIENTED TO NAME, BIRTHDAY, PLACE, AND DATE. PATIENT NOT COMPLAINING OF SHORTNESS OF BREATH. PATIENT ON ROOM AIR. PATIENT NOT COMPLAINING OF PAIN OR NAUSEA AND VOMITING. IV PATENT WITH NO SIGNS OF INFILTRATION. SCD'S ARE ON. MARCI DRAIN IS DRAINING. NOT LEAKING AT MOMENT. AT BEDSIDE. BED IN LOWEST POSITION WITH CALL LIGHT IN REACH. SIDE RAILS ARE UP AND BED ALARM IS ON. WILL CONTINUE TO MONITOR.
[2018-04-01 08:01] VITALS: BP_SYST 127
[2018-04-01 08:29] LABS: INR 1.2 (0.80-1.20); PROTHROMBIN TIME 11.7 SECS (9.5-12.5)
[2018-04-01] MEDS: CARVEDILOL 3.125 MG TABLET (COREG) PO SCH ×2 (09:26→21:21)
[2018-04-01] MEDS: TAMSULOSIN HCL 0.4 MG CAP PO SCH (09:27)
[2018-04-01] MEDS: LISINOPRIL 20 MG TABLET PO SCH (09:29)
[2018-04-01] MEDS: FINASTERIDE 5 MG TABLET (PROSCAR) PO SCH (09:30)
[2018-04-01] MEDS: PANTOPRAZOLE SODIUM 40 MG/VIAL (PROTONIX) IVP SCH (10:40)
--- NOTE | 2018-04-01 10:40 | NUR ---
NOTE: PATIENT WAS ASLEEP IN BED WITH NO SIGNS OF DISTRESS. PATIENT GIVEN SCHEDULED MEDICATION. PATIENT WENT BACK TO SLEEP. WILL CONTINUE TO MONITOR.
[2018-04-01 11:16] VITALS: BP_SYST 122
--- NOTE | 2018-04-01 12:20 | NUR ---
NOTE: PATIENT TALKING ON PHONE WITH NO SIGNS OF DISTRESS. PATIENT HAS NO FURTHER REQUESTS. WILL CONTINUE TO MONITOR.
--- NOTE | 2018-04-01 13:45 | NUR ---
CM DCP ASSESSMENT: DCP ASSESSMENT COMPLETED. Pt LIVES ALONE WITH IN SINGLE STORY HOME WITH NO STEPS TO ENTER/EXIT. Pt/ HAVE CHILDREN WHO LIVE IN [facility]. Pt IS RETIRED AT THIS TIME, BUT STILL DRIVES A CAR. CM SERVICES TO REMAIN AVAILABLE NEEDED. Pt's PLAN FOR DC IS TO GO HOME WHEN MEDICALLY STABLE. NIECE STATES THAT Pt HAS Hx OF ASTHMA; USES INHALER AT HOME; AND, NEEDS TO USE INHALER WHEN WALKING DISTANCES.
--- NOTE | 2018-04-01 14:55 | NUR ---
NOTE: PATIENT LAYING IN BED WITH NO SIGNS OF DISTRESS. GAVE PATIENT SCHEDULED MEDICATION. MARCI DRAIN WAS FULL. EMPTIED IT OUT. NO LEAKAGE FROM COLOSTOMY BAG BUT WAS EMPTIED TOO. GAVE PATIENT NEW BLANKETS. PATIENT HAS NO FURTHER REQUESTS. WILL CONTINUE TO MONITOR.
--- NOTE | 2018-04-01 16:01 | NUR ---
NOTE: PATIENT LAYING IN BED WITH NO SIGNS OF DISTRESS. PATIENT HAS NO FURTHER REQUESTS. WILL CONTINUE TO MONITOR.
[2018-04-01 16:41] VITALS: BP_SYST 128
--- NOTE | 2018-04-01 18:10 | NUR ---
CLOSING NOTE: PATIENT IS AWAKE, LAYING DOWN IN BED WITH NO SIGNS OF DISTRESS. PATIENT ON ROOM AIR. PATIENT IV IS SALINE LOCKED WITH NO SIGNS OF INFILTRATION. PATIENT NOT COMPLAINING OF PAIN. MARCI DRAIN WAS EMPTIED. INCISIONS OPEN TO AIR. PATIENT SAID HE HAS TO HAVE A BOWEL MOVEMENT BUT IS WAITING FOR IT TO COME OUT. LET PATIENT KNOW TO CALL US WHEN HE NEEDS TO USE RESTROOM SO WE CAN HELP HIM. BED IS IN LOWEST POSITION WITH CALL LIGHT IN REACH. BED ALARM IS ON AND SIDE RAILS ARE UP. WILL CONTINUE TO MONITOR AND GIVE REPORT TO RUBBER GOODS INSPECTOR NURSE.
--- NOTE | 2018-04-01 19:30 | NUR ---
OPENING NOTE Patient sitting in the bed and eating his dinner. No acute distress. Respiration even and unlabored. AAO x 4. Denied of pain. Skin warm and dry to touch. SL intact to RFA and LAC, no redness, no swelling, patent. MARCI drain intact to right abdomen with brown drainage, MARCI site leakage still noted with colectomy bay intact with brown drainage. Discussed the safety issue, use call light when needs help, plan of care and NPO after midnight for ERCP tomorrow, verbally understanding. Safety measure maintained. Bed locked in low position, side rails up, bed alarm on. Call light within reached. Will continue to monitor.
[2018-04-01 20:00] VITALS: BP_SYST 110
[2018-04-01] MEDS: LATANOPROST 2.5 ML DROPS (XALATAN) OP SCH (21:21)
--- NOTE | 2018-04-01 21:25 | NUR ---
SCHEDULE MED Patient resting in the bed with family visit at bedside. Schedule med given. MARCI drain empty with 100cc brown color output. Safety measure maintained. Bed locked in low position, side rails up, bed alarm on. Call light within reached. Continue to monitor.
--- NOTE | 2018-04-01 23:05 | NUR ---
ROUND Patient resting in the bed with eyes closed. No acute distress. Safety measure maintained. Call light within reached. Bed locked and low position, side rails up, bed alarm on. Continue to monitor.
--- NOTE | 2018-04-02 01:30 | NUR ---
EMPTY MARCI DRAIN Patient resting in the bed comfortable. Respiration even and unlabored. Empty MARCI drain with 75cc brown color output. Safety measure maintained. Bed locked in low position, side rails up, bed alarm on. Call light within reached. Continue to monitor.
[2018-04-02 01:35] VITALS: BP_SYST 104
--- NOTE | 2018-04-02 03:22 | NUR ---
ROUND Patient resting in the bed with eyes closed. No acute distress. Respiration even and unlabored. Safety measure maintained. Call light within reached. Bed locked and low position, side rails up, bed alarm on. Continue to monitor.
[2018-04-02] MEDS: metroNIDAZOLE 500 mg/NS 100 ML IV SCH ×3 (05:09→21:42)
--- NOTE | 2018-04-02 05:20 | NUR ---
CONSENT SIGNED Patient signed the consent of ERCP, verbally understanding the procedure and started that MD explained yesterday.
--- NOTE | 2018-04-02 06:58 | NUR ---
CLOSING NOTE Patient resting in the bed. No acute distress. Respiration even and unlabored. AAO x 4. Denied of pain. Skin warm and dry to touch. SL intact to RFA and LAC, no redness, no swelling, patent. MARCI drain intact to right abdomen with brown drainage, MARCI site leakage still noted with colectomy bay intact with brown drainage. NPO since midnight. All needs met. Hourly rounding during shift. Safety measure maintained. Bed locked in low position, side rails up, bed alarm on. Call light within reached. Will endorse to morning shift nurse.
[2018-04-02] MEDS: IPRATROPIUM BROM 0.5 MG/2.5 ML VIAL.NEB (ATROVENT) INH SCH ×3 (07:00→21:11)
[2018-04-02] MEDS: ALBUTEROL SULFATE 0.083% 2.5 MG/3 ML VIAL.NEB INH SCH ×3 (07:00→21:11)
[2018-04-02 07:11] LABS: EOSINOPHILS # (AUTO) 0.1 K/uL (0.0-0.4); EOSINOPHILS % (AUTO) 1.4 % (0.0-4.0); HEMATOCRIT 36.3 % (36-54); HEMOGLOBIN 12.1 g/dL (14.0-18.0); LYMPHOCYTES # (AUTO) 0.8 K/uL (1.0-5.5); LYMPHOCYTES % (AUTO) 9.5 % (20.5-51.5); MEAN CORPUSCULAR HEMOGLOBIN 28 pg (27-31); MEAN CORPUSCULAR HGB CONC 33 % (32-36); MEAN CORPUSCULAR VOLUME 85 fL (79.0-98.0); MONOCYTES # (AUTO) 0.5 K/uL (0.0-1.0); MONOCYTES % (AUTO) 6.1 % (1.7-9.3); NEUTROPHILS # (AUTO) 6.8 K/uL (1.8-7.7); PLATELET COUNT (AUTO) 324 K/uL (130-430); RED BLOOD CELL COUNT(AUTO) 4.28 MIL/uL (4.2-6.2); RED CELL DISTRIBUTION WIDTH 13.2 % (9.0-15.0); WHITE BLOOD COUNT (AUTO) 8.2 K/uL (4.8-10.8)
--- NOTE | 2018-04-02 07:15 | NUR ---
Opening Note patient resting in bed, awake and alert, no complaints of pain, at bedside, IV sites saline locked, AMRCI drain compressed and draining, safety precautions in place, educated patient on use of call light for assistance, verbalized understanding, call light and bedside table left within reach, will continue to monitor
--- NOTE | 2018-04-02 07:30 | NUR ---
Patient Taken to OR at this time for ERCP, will assess when he returns
[2018-04-02 07:44] LABS: ANION GAP 6 (5-15); CALCIUM 8.1 mg/dL (8.4-11.0); CHLORIDE 107 mmol/L (98-107); GLUCOSE 94 mg/dL (70-99); POTASSIUM 3.3 mmol/L (3.5-5.1); SODIUM SERUM 139 mmol/L (136-145); UREA NITROGEN, BLOOD 9 mg/dL (8-21)
[2018-04-02] MEDS ORDERED: IOHEXOL 50 ML IV ONE (07:44)
[2018-04-02] MEDS ORDERED: INDOMETHACIN 50 MG SUPP.RECT RC ONE (07:45)
[2018-04-02 07:49] LABS: INR 1.2 (0.80-1.20); PROTHROMBIN TIME 12.1 SECS (9.5-12.5)
[2018-04-02 07:58] LABS: ALANINE AMINOTRANSFERASE 43 U/L (12-78); ALBUMIN 1.9 g/dL (3.4-4.8); ASPARTATE AMINOTRANSFERASE 54 U/L (10-37); TOTAL BILIRUBIN 0.9 mg/dL (0.0-1.0)
[2018-04-02] MEDS ORDERED: ONDANSETRON HCL 4 MG/2 ML VIAL IVP PRN (08:15)
[2018-04-02] MEDS ORDERED: fentaNYL CITRATE/PF 100 MCG/2 ML AMP IVP PRN ×2 (08:15)
[2018-04-02] MEDS: LR 1,000 ML IV SCH ×2 (09:30→19:30)
--- NOTE | 2018-04-02 09:55 | NUR ---
Patient Back on Unit at this time, 30 mL drainage removed from MARCI drain, at bedside, BP within normal limits, vitals stable, safety precautions in place, will continue to monitor closely
--- NOTE | 2018-04-02 10:15 | NUR ---
Dr. Ventura Rounded at this time, stated spoke with Dr. Reynolds and stent that was placed was too short and patient may have to follow up as outpatient, will await for Dr. Garcia to make rounds again
[2018-04-02 10:41] VITALS: BP_SYST 125
[2018-04-02] MEDS: PANTOPRAZOLE SODIUM 40 MG/VIAL (PROTONIX) IVP SCH (10:51)
[2018-04-02] MEDS: TAMSULOSIN HCL 0.4 MG CAP PO SCH (10:52)
[2018-04-02] MEDS: LISINOPRIL 20 MG TABLET PO SCH (10:52)
[2018-04-02] MEDS: FINASTERIDE 5 MG TABLET (PROSCAR) PO SCH (10:53)
[2018-04-02] MEDS: CARVEDILOL 3.125 MG TABLET (COREG) PO SCH ×2 (10:58→21:00)
--- NOTE | 2018-04-02 11:30 | NUR ---
Patient Refused Suppository stated has not been having adequate diet to provide BM, family at bedside, no complaints of pain, MARCI still draining, safety precautions in place, educated patient on use of call light for assistance, verbalized understanding, call light and bedside table left within reach, will continue to monitor
--- NOTE | 2018-04-02 11:42 | NUR ---
RPT WAS PRESENT WITH THE AIRPLANE TUBE BUILDER FOR BED MOBILITY AND TRANSFER TRAINING WITH THIS PATIENT. PATIENT REPORTED MODERATE DIZZINESS, THEREFORE, GAIT TRAINING WAS DEFERRED TODAY. RN PRESENT AND GAVE MEDICAL CLEARANCE TO ASSIST/TREAT THE PATIENT. PATIENT HAD A SURGICAL PROCEDURE EARLIER THIS MORNING. PATIENT REQUIRED CONTACT GUARD ASSIST WITH BED MOBILITY. CGA TO MIN ASSIST WITH TRANSFERS FROM BED TO COMMODE. PLAN: WILL RESUME GAIT TRAINING TOMORROW.
--- NOTE | 2018-04-02 13:51 | NUR ---
Dr. Garcia Rounded at this time, stated he wants to meet with family, stated to page him when I am able to get a hold of family
--- NOTE | 2018-04-02 14:15 | NUR ---
Patient Assisted to Restroom/Small BM with assistance from Greyson PT, patient was able to ambulate with minimal assistance with walker to bathroom, patient had small BM, clear/white in color, patient has been on clear liquid diet, assisted back to bed, safety precautions in place, educated patient and family on use of call light for assistance, verbalized understanding, call light and bedside table left within reach, will continue to monitor
--- NOTE | 2018-04-02 16:05 | NUR ---
Spoke with Dr. Garcia Over Phone informed him that patient has no family members that speak Serbian, informed him that patient's and neighbor are at bedside, MD verbalized understanding, stated he will be by in a couple hours, family made aware, will await MD to visit
--- NOTE | 2018-04-02 16:15 | NUR ---
Patient Assisted to Commode urinated on floor, was assisted back to bed, family at bedside, educated patient on use of call light for assistance, verbalized understanding, call light and bedside table left within reach, will continue to monitor
[2018-04-02 16:34] VITALS: BP_SYST 126
--- NOTE | 2018-04-02 18:20 | NUR ---
Dr. Garcia Spoke with Family and gave option for procedure tomorrow or if patient wants to be transferred to tertiary care as outpatient, patient and family consented to procedure, will begin pre-op checklist
--- NOTE | 2018-04-02 19:10 | NUR ---
Closing Note patient resting in bed, positioned to his side, breathing unlabored on room air, IV fluids infusing, site patent, MARCI drain compressed, safety precautions in place, call light and bedside table left within reach, endorsed to casket assembler nurse
--- NOTE | 2018-04-02 19:45 | NUR ---
Opening notes Received report. Patient is resting in bed. No signs of distress noted. Breathing is even and unlabored on room air. MARCI drain is intact and decompressed. Denies any pain. No needs at this moment. Bed is in the lowest position, bed alarm is on, call light is with the patient. Family is at the bedside.
[2018-04-02 20:02] VITALS: BP_SYST 90
--- NOTE | 2018-04-02 21:13 | NUR ---
FOUND PT WITH 02 OFF, BUT PT SATING 97%. LEFT O2 OFF. Addendum: 04/02/18 at 2335 by Andria Pinon RT Amended: Links added.
[2018-04-02] MEDS: LATANOPROST 2.5 ML DROPS (XALATAN) OP SCH (21:42)
--- NOTE | 2018-04-02 22:05 | NUR ---
RN rounds Patient is resting on his left side. Shows no signs of distress. Breathing is even and unlabored on room air. No needs at this moment. Safety precautions are in place.
[2018-04-03] VITALS (17 sets, daily range): BP systolic 108–192
--- NOTE | 2018-04-03 00:10 | NUR ---
RN rounds Patient is resting comfortably in bed. No signs of distress noted. Breathing is even and unlabored on room air. No needs at this moment. Patient used incentive spirometer up to 1000. Patient demonstrated proper use and tolerated well.
--- NOTE | 2018-04-03 02:31 | NUR ---
RN rounds Patient is asleep in bed. No signs of distress noted. Breathing is even and unlabored on room air. No needs at this moment. Safety precautions are in place.
[2018-04-03] MEDS: metroNIDAZOLE 500 mg/NS 100 ML IV SCH ×3 (05:44→21:00)
[2018-04-03] MEDS: LR 1,000 ML IV SCH ×2 (05:46→19:40)
--- NOTE | 2018-04-03 06:05 | NUR ---
CHG CHG BATH GIVEN TO PATIENT FOR SURGERY THIS AM, PATIENT REMAINS NPO, IV LINE TO LEFT AC INFILTRATED, IV ANTIBIOTICS AND IVF RESUMED TO IV ON RIGHT AC. NO SIGNS OF INFILTRATION NOTED.
--- NOTE | 2018-04-03 06:45 | NUR ---
Closing notes Patient is resting comfortably in bed. No signs of distress noted. Breathing is even and unlabored on room air. IV is patent and benign, infusing fluids. MARCI drain is intact and decompressed. No needs at this moment. Practice guidelines met throughout the shift. Safety precautions are in place.
[2018-04-03 06:52] LABS: BASOPHILS % (AUTO) 0.1 % (0.0-2.0); EOSINOPHILS % (AUTO) 0.3 % (0.0-4.0); HEMATOCRIT 35.1 % (36-54); HEMOGLOBIN 11.6 g/dL (14.0-18.0); LYMPHOCYTES # (AUTO) 0.8 K/uL (1.0-5.5); LYMPHOCYTES % (AUTO) 4.9 % (20.5-51.5); MEAN CORPUSCULAR HEMOGLOBIN 29 pg (27-31); MEAN CORPUSCULAR HGB CONC 33 % (32-36); MEAN CORPUSCULAR VOLUME 86 fL (79.0-98.0); MONOCYTES # (AUTO) 0.8 K/uL (0.0-1.0); MONOCYTES % (AUTO) 4.8 % (1.7-9.3); NEUTROPHILS # (AUTO) 14.5 K/uL (1.8-7.7); PLATELET COUNT (AUTO) 309 K/uL (130-430); RED BLOOD CELL COUNT(AUTO) 4.06 MIL/uL (4.2-6.2); RED CELL DISTRIBUTION WIDTH 13.5 % (9.0-15.0); WHITE BLOOD COUNT (AUTO) 16.1 K/uL (4.8-10.8)
[2018-04-03] MEDS: IPRATROPIUM BROM 0.5 MG/2.5 ML VIAL.NEB (ATROVENT) INH SCH ×3 (07:00→21:22)
[2018-04-03] MEDS: ALBUTEROL SULFATE 0.083% 2.5 MG/3 ML VIAL.NEB INH SCH ×3 (07:00→21:22)
[2018-04-03 07:08] LABS: ANION GAP 8 (5-15); CALCIUM 8.2 mg/dL (8.4-11.0); CHLORIDE 106 mmol/L (98-107); CREATININE 0.86 mg/dL (0.55-1.30); GLUCOSE 99 mg/dL (70-99); POTASSIUM 3.4 mmol/L (3.5-5.1); SODIUM SERUM 142 mmol/L (136-145); UREA NITROGEN, BLOOD 6 mg/dL (8-21)
[2018-04-03] MEDS ORDERED: LR 1,000 ML IV.SOLN IV ONE (07:15)
[2018-04-03] MEDS ORDERED: ROCURONIUM BROMIDE 10 MG/ML (ZEMURON) IV ONE (07:15)
[2018-04-03] MEDS ORDERED: fentaNYL CITRATE 250 MCG/5 ML AMP IV ONE (07:15)
[2018-04-03] MEDS ORDERED: NS IRRIG SOLN 1000 ML IR ONE (07:15)
[2018-04-03] MEDS ORDERED: MIDAZOLAM HCL 5 MG/5 ML VIAL IVP ONE (07:15)
[2018-04-03] MEDS ORDERED: SEVOFLURANE 15 MIN GAS INH ONE (07:15)
[2018-04-03] MEDS ORDERED: ALBUMIN HUMAN 25% 12.5 GM/50 ML VIAL IV ONE (07:15)
[2018-04-03] MEDS ORDERED: PROPOFOL 200MG/ 20ML VIAL (DIPRIVAN) IV ONE (07:15)
[2018-04-03 07:18] LABS: ALANINE AMINOTRANSFERASE 46 U/L (12-78); ALBUMIN 1.8 g/dL (3.4-4.8); ASPARTATE AMINOTRANSFERASE 41 U/L (10-37); LIPASE 778 U/L (73-393); TOTAL BILIRUBIN 1.2 mg/dL (0.0-1.0)
[2018-04-03 07:23] LABS: INR 1.3 (0.80-1.20); PROTHROMBIN TIME 13.3 SECS (9.5-12.5)
[2018-04-03] MEDS ORDERED: IOHEXOL 50 ML IV ONE (07:30)
--- NOTE | 2018-04-03 07:50 | NUR ---
Opening Note Report received from Nia CRUZ shift nurse. Patient is currently in OR.
[2018-04-03] MEDS ORDERED: fentaNYL CITRATE/PF 100 MCG/2 ML AMP IVP PRN ×2 (08:00)
[2018-04-03] MEDS ORDERED: ONDANSETRON HCL 4 MG/2 ML VIAL IVP PRN (08:00)
[2018-04-03] MEDS: CARVEDILOL 3.125 MG TABLET (COREG) PO SCH ×2 (09:00→20:29)
[2018-04-03] MEDS: LISINOPRIL 20 MG TABLET PO SCH (09:00)
[2018-04-03] MEDS: FINASTERIDE 5 MG TABLET (PROSCAR) PO SCH (09:00)
[2018-04-03] MEDS: PANTOPRAZOLE SODIUM 40 MG/VIAL (PROTONIX) IVP SCH (09:00)
[2018-04-03] MEDS: TAMSULOSIN HCL 0.4 MG CAP PO SCH (09:00)
[2018-04-03] MEDS ORDERED: LORazepam 2 MG/ML VIAL IVP PRN (09:45)
[2018-04-03] MEDS: PIPERACILLIN/TAZO 3.375/DEX-IS 50 ML IV SCH ×4 (09:45→23:19)
[2018-04-03] MEDS ORDERED: MORPHINE 4 MG/ML INJ. SYRINGE IVP PRN (09:45)
[2018-04-03] MEDS ORDERED: PROPOFOL DRIP 100 ML IV PRN (09:45)
--- NOTE | 2018-04-03 09:45 | NUR ---
TO ICU. RECEIVED PT MECHANICALLY VENTILATED, RECOVERY NURSE WITH THE PT, CONNECTED PT TO A CONTINUOUS CARDIAC MONITORING, BLOOD PRESSURE CUFF, PULSE OXIMETER. PT RESTLESS, DR JOHNSON, ANESTHESIOLOGIST, MEDICATED PT WITH FENTANYL IVP. DR BARROW IN THE STATION, ORDERED TO START PT ON DIPRIVAN DRIP. PT HAS A JOEL CATHETER, HERNAN HERZOG DRAIN AND T TUBE DRAIN.
[2018-04-03] MEDS ORDERED: PROPOFOL DRIP 100 ML IV ONE (09:54)
[2018-04-03] MEDS: MORPHINE 4 MG/ML INJ. SYRINGE IVP PRN ×2 (10:10→21:00)
--- NOTE | 2018-04-03 11:00 | NUR ---
IV. ANOTHER IV INSERTED INTO LEFT WRIST, 20 GAUGE CATHETER USED, GOOD BLOOD RETURN NOTED.
[2018-04-03 11:08] LABS: NEUTROPHILS % (AUTO) 89.9 % (40.0-70.0)
--- NOTE | 2018-04-03 11:44 | NUR ---
PT Note Unable to see patient today; patient still hasn't returned from surgery, will try again tomorrow.
--- NOTE | 2018-04-03 12:01 | NUR ---
ABG. DR BARROW WAS PAGED AND RETURNED THE CALL. AWARE OF ABG RESULT. ORDERS RECEIVED, TO CHANGE VENT MODE TO SIMV. R.T. AWARE.
--- NOTE | 2018-04-03 12:07 | NUR ---
RT NOTES 0725 PT IN O.R. 0930 PT OUT FROM O.R., PLACED IN ICU 6 INTUBATED AC 14,600, 5+, 100% 1137 DID ABG, RESULTS NORMAL EXCESSIVE FIO2. 1207 DR BARROW ORDERED PT TO BE PUT ON SIMV 8, PS10, PEEP 5 40% FOR 30 MINUTES AND PUT PT ON CPAP 5, PS10 40% AND ABG IN 1 HOUR. 3068-4055 PUT PATIENT ON CPAP, PARRISH GAS. 1440- DR BARROW ORDERED EXTUBATION ON PATIENT. PUT ON 02 2LNC, KEEP SAT <92% 1450- EXTUBATE PATIENT, PUT ON O2 2LNC. SAT 100% WILL LEAVE PATIENT ON THAT FOR A WHILE THEN TITRATE NEEDED. 1535- GIVEN TID BREATHING TX. NO DISTRESS NOTED.
--- NOTE | 2018-04-03 12:07 | NUR ---
VENT. Ledesma SWITCHED ASSIST CONTROL MODE TO SIMV.
--- NOTE | 2018-04-03 14:30 | NUR ---
VENT. CALLED DR BARROW AND SHE RETURNED THE CALL, READ OUT ABG RESULT WHILE PT ON CPAP MODE. NEW ORDERS RECEIVED, TO EXTUBATE PT, R.T. AWARE.
--- NOTE | 2018-04-03 14:50 | NUR ---
O2. R.T. AT BEDSIDE, EXTUBATED PT, AND O2 VIA NASAL CANNULA LEFT AT 2L. PT REMAINS AWAKE, DENIES PAIN.
--- NOTE | 2018-04-03 17:30 | NUR ---
HYGIENE. PT ALERT, REPOSITIONED IN BED, ORAL CARE RENDERED, NO COMPLAINTS OF PAIN, STATED "I HAVE TO GO PEE", REMINDED PT THAT HE HAS A JOEL CATHETER, URINE DRAINING WELL.
--- NOTE | 2018-04-03 19:30 | NUR ---
TRANSFER OF CARE Received report from AM shift RN. Pt AAOX4 serbian speaking, able to understand minimal latvian. No acute distress at this time. Afib on the monitor with 2l nasal cannula with O2 saturation of 100%. MARCI draining pinkish red fluid and T-tube draining yellow fluid in placed on the right abdomen covered with clean and dry dressing. Danielson catheter in placed draining red orange urine. IV on the LW 20g and RAC 20g patent and no infiltration noted. Safety precaution observed, call light within reach. Will continue to monitor Pt.
--- NOTE | 2018-04-03 20:00 | NUR ---
O2 Pt's O2 saturation at 100% without nasal cannula no signs of acute respiratory distress. Will continue to monitor Pt.
[2018-04-03] MEDS: LATANOPROST 2.5 ML DROPS (XALATAN) OP SCH (20:29)
[2018-04-04] VITALS (14 sets, daily range): BP systolic 91–149
--- NOTE | 2018-04-04 | NUR ---
REASSESSMENT Pt in bed, no acute distress at this time. Will continue to monitor Pt.
[2018-04-04] MEDS: LR 1,000 ML IV SCH (03:10)
[2018-04-04] MEDS: ALBUTEROL SULFATE 0.083% 2.5 MG/3 ML VIAL.NEB INH PRN (03:27)
--- NOTE | 2018-04-04 04:00 | NUR ---
REASSESSMENT Pt in bed, no acute distress at this time. Will continue to monitor Pt.
--- NOTE | 2018-04-04 06:30 | NUR ---
CLOSING NOTES Pt in bed, no acute distress at this time. IV lines and skin checked. Will give report to oncoming RN.
[2018-04-04] MEDS: metroNIDAZOLE 500 mg/NS 100 ML IV SCH (06:44)
[2018-04-04] MEDS: PIPERACILLIN/TAZO 3.375/DEX-IS 50 ML IV SCH ×3 (06:44→18:08)
[2018-04-04 06:49] LABS: EOSINOPHILS % (AUTO) 0.2 % (0.0-4.0); HEMATOCRIT 34.1 % (36-54); HEMOGLOBIN 11.6 g/dL (14.0-18.0); LYMPHOCYTES # (AUTO) 0.8 K/uL (1.0-5.5); LYMPHOCYTES % (AUTO) 4.2 % (20.5-51.5); MEAN CORPUSCULAR HEMOGLOBIN 29 pg (27-31); MEAN CORPUSCULAR HGB CONC 34 % (32-36); MEAN CORPUSCULAR VOLUME 85 fL (79.0-98.0); MONOCYTES # (AUTO) 0.9 K/uL (0.0-1.0); MONOCYTES % (AUTO) 4.7 % (1.7-9.3); NEUTROPHILS # (AUTO) 16.4 K/uL (1.8-7.7); NEUTROPHILS % (AUTO) 90.9 % (40.0-70.0); PLATELET COUNT (AUTO) 336 K/uL (130-430); RED BLOOD CELL COUNT(AUTO) 4.01 MIL/uL (4.2-6.2); RED CELL DISTRIBUTION WIDTH 13.6 % (9.0-15.0); WHITE BLOOD COUNT (AUTO) 18.1 K/uL (4.8-10.8)
[2018-04-04 06:58] LABS: ALANINE AMINOTRANSFERASE 48 U/L (12-78); ALBUMIN 1.5 g/dL (3.4-4.8); ANION GAP 7 (5-15); ASPARTATE AMINOTRANSFERASE 43 U/L (10-37); CALCIUM 8.1 mg/dL (8.4-11.0); CHLORIDE 107 mmol/L (98-107); CREATININE 0.78 mg/dL (0.55-1.30); GLUCOSE 106 mg/dL (70-99); POTASSIUM 3.6 mmol/L (3.5-5.1); SODIUM SERUM 139 mmol/L (136-145); TOTAL BILIRUBIN 2.4 mg/dL (0.0-1.0); UREA NITROGEN, BLOOD 12 mg/dL (8-21)
--- NOTE | 2018-04-04 07:45 | NUR ---
OPENING NOTES, RECEIVED PT IN BED, PT IS AAOX3, DENIES PAIN, NO SOB. NO RESP DISTRESS. IV FLUIDS INFUSING WELL ON LEFT WRIST. NO S/S OF INFILTRATION, NO SWELLING. ABDOMINAL DRESSING SOAKED WITH SERO SANGUINOUS DRAINAGE. MARCI HAS 50 CC OF DARK BLOODY DRAINAGE. T-TUBE HAS VERY SCAN BILE COLORED DRAINAGE. JOEL CATH IN AND SECURED, BAG AT FOOT OF BED. PT ENCOURAGED TO CALL FOR ASSIST AND PAIN MEDS, CALL LIGHT IN REACH. WILL CONT TO MONITOR.
--- NOTE | 2018-04-04 07:45 | NUR ---
OPENING NOTES RECEIVED PT IN BED, PT IS AAOX3, NON VERBAL DUE TO ETT AND OGT BUT COMMUNICATES WITH GESTURES AND WRITING. PT IS MORE COOPERATIVE AND ALERT NOW, NO MORE RESTRAINTS. PT ON VENT SIMV 4, TV 450, PS 10, P 5, FIO2 25%. WILL CONT TO MONITOR. Addendum: 04/04/18 at 0833 by Chris Resendiz RN PLEASE DISREGARD THIS PATIENT'S NOTE, THIS BELONGS TO ANOTHER PT. WRONG ENTRY.
[2018-04-04] MEDS: ALBUTEROL SULFATE 0.083% 2.5 MG/3 ML VIAL.NEB INH SCH ×3 (07:52→23:40)
[2018-04-04] MEDS: IPRATROPIUM BROM 0.5 MG/2.5 ML VIAL.NEB (ATROVENT) INH SCH ×3 (07:52→23:40)
[2018-04-04] MEDS ORDERED: KCL 40 mEq in 100 mL (PREMIX) 100 ML IV ONE (08:15)
[2018-04-04] MEDS ORDERED: POTASSIUM CHLORIDE 40 MEQ in NS 250 ML IV ONE (08:30)
--- NOTE | 2018-04-04 08:30 | NUR ---
DR MARKS HERE AND CHANGED DRESSING OF ABDOMINAL SURGICAL WOUND. NEW ORDERS GIVEN FOR CLEAR LIQUID DIET. ORDERS CARRIED OUT. DR VARELA AND DR MANJARREZ WAS HERE WELL AND SEEN PT.
[2018-04-04] MEDS ORDERED: BISACODYL 10 MG/SUPPOSITORY RC ONE (08:45)
[2018-04-04] MEDS: PANTOPRAZOLE SODIUM 40 MG/VIAL (PROTONIX) IVP SCH (09:21)
[2018-04-04] MEDS: CARVEDILOL 3.125 MG TABLET (COREG) PO SCH ×2 (09:21→21:00)
[2018-04-04] MEDS: TAMSULOSIN HCL 0.4 MG CAP PO SCH (09:21)
[2018-04-04] MEDS: LISINOPRIL 20 MG TABLET PO SCH (09:23)
[2018-04-04] MEDS: FINASTERIDE 5 MG TABLET (PROSCAR) PO SCH (09:25)
--- NOTE | 2018-04-04 10:00 | NUR ---
PT ION BED, FAMILY AT BEDSIDE. NO C/O PAIN.STARTED ON CLEAR LIQUID DIET ORDERED BY DR MARKS. NO PAIN AND NO N/V AFTER EATING JELLO AND DRINKING WATER.
--- NOTE | 2018-04-04 12:30 | NUR ---
PT ON O2, PT DESAT AFTER SITTING ON EOB. WILL CONT TO MONITOR.
--- NOTE | 2018-04-04 14:38 | NUR ---
Wound Evaluation: Late note for 143 secondary to patient care. Wound Consult ordered for Low Tushar Score. Patient evaluated for a low Tushar score of 13. Patient was awake, slow to respond, oriented, and received in a Chanda Bed with an IsoFlex KASSANDRA mattress with low air loss therapy. Patient needs assist to turn in bed secondary to weakness and abdominal pain. Skin is fair; Bilateral heels have blanchable erythema; Abdomen has intact surgical dressing, MARCI drain and T-tube from a recent exploratory laparotomy with cholangiogram and repair of common bile duct leak. Recommend encourage and assist patient as needed with repositioning every 2 hours with pillow support. Elevate, off-load and float bilateral heels with pillows. Offload pressure areas with pillows for pressure re-distribution. Perform skin care and monitor skin integrity Q shift. Use moisture barrier cream on moisture susceptible areas QID and PRN for soiling. Place patient on a low air-loss mattress.
[2018-04-04] MEDS: D5/0.45 NS 1,000 ML IV SCH (15:25)
--- NOTE | 2018-04-04 15:40 | NUR ---
Nutrition F/U Admitting Diagnosis Acute cholecystitis Reviewed Pertinent Medical/Surgical Hx Medical Record Patient Family Medical History Comment: PMH: H/O BPH, chronic atrial fibrillation, HTN,COPD, glaucoma. PSH: pacemaker implantation. 04/04/18 Cardiology Consult note: s/p exploratory laparotomy and resection of common bile duct and placement of a T-tube; acute cholecystitis with gangrene of gallbladder; s/p laparoscopic cholecystectomy done postoperative day #6; excess drainage out of the MARCI drainage site possibly leakage from a bile duct as per ERCP; chronic atrial fibrillation controlled ventricular response; essential hypertension; BPH; no evidence for active congestive heart failure or active angina. POD 1 s/p exploratory laparotomy and resection of common bile duct and placement of T-tube Subjective Information Pt seen resting in bed w/ and son at bedside. Pt stated that he doesn't care for Ensure milk-like products as they cause him diarrhea. RD educated pt of current Ensure Clear product provided w/ current clear liquid diet. Pt stated that he enjoys the broth and fruit ice items. Pt is not yet meeting optimal nutritional needs. Per RN, pt has not been complaining of pain or nausea, and seems to be tolerating diet well. Current Diet Order/Nutrition Support Clear liquid x0 days Patient/Significant Other Able To Verbalize Education Provided Indicated Pertinent Medications dulcolax, protonix IV, piperacillin/tazobactam IV, zofran, KCl/NaCl IV Pertinent Labs K 3.6 WNL (improved), ALB 1.5 L, H/H 11.6 L/34.1 L, BG 106 H, Tbili 2.4 H, AST 43 H Height (Feet) 6 feet Height (Inches) 6.00 inches Weight (Pounds) 247 pounds (03/30/18) Weight (Calculated Kilograms) 112.291842 kilograms Patient Weight 112.037 kg Body Mass Index 28.54 kg/m2 %IBW 115 [place]/Adjusted Body Weight 214 lb, 97 kg Recent Weight Change No - per pt Weight Status Overweight Gastrointestinal Symptoms None Last BM 04/03/18 Difficulty With: Chewing Food Allergies No - per pt Usual Diet At Home regular diet, home cooked meals per pt Skin Integrity Comment: Tushar scale: 14; Per RN notes, anterior abd w/ incision Current % PO Fair -- 51% average x11 meals Estimated Energy Expenditure (kcals/day) 2272-1652 kcal/day (25-30 kcal/kg IBW for maintenance) Estimated Protein Required (g/day) 116-146 gm/day (1.2-1.5 gm/kg IBW for post-surgery repletion) Estimated Fluid Required (l/day) 2.4 L/day (25ml/kg IBW for Geriatric maintenance) Problem/Etiology/Signs/Symptoms Inadequate nutritional intake related to physiological factors as evidenced by pt's PO intake of 61% and pt's report of ill fitting dentures. *ongoing Expected Outcomes/Goals Monitor pt appetite and PO intake w/ goal of pt meeting at least 75% of estimated nutritional needs, labs trending WNL, normal GI function, skin integrity/wt maintenance. Dietitian Recommendations * Recommend continuing clear liquid diet per MD * Consider low-fat, soft (low fiber/bland) diet if/when medically appropriate Follow Up High Risk: F/U in 2-3 days
--- NOTE | 2018-04-04 15:53 | NUR ---
Dietitian Recommendations * Recommend continuing clear liquid diet per MD * Consider low-fat, soft (low fiber/bland) diet if/when medically appropriate LP, RD Please refer to Nutrition F/U for details.
--- NOTE | 2018-04-04 17:49 | NUR ---
BONITA TO [facility]. PT MOVED FROM ICU4 TO 119B. PT TOLERATED TRANSFER, PT NOW EATING DINNER.
--- NOTE | 2018-04-04 17:55 | NUR ---
PATIENT TRANSFERRED FROM ICU RECEIVED REPORT FROM ICU NURSE, PATIENT CURRENTLY RESTING IN BED, NO SIGNS OF DISTRESS NOTED, BREATHING IS EVEN AND UNLABORED, PATIENT IS ON 2L OF 02, DRESSING NOTED ON ABDOMEN, DRESSING CLEAN DRY AND INTACT, T-TUBE AND MARCI DRAIN INTACT. PATIENT HAS JOEL CATHETER DRAINING PINK/BLOOD TINGED URINE. IV IN LEFT FOREARM WITH IV FLUIDS RUNNING, NO SIGNS OF INFILTRATION NOTED, PATIENT HAS IV IN RIGHT AC, SALINE LOCK. INSTRUCTED PATIENT TO USE CALL POOLE IF ASSISTANCE IS NEEDED, PATIENT VERBALIZED UNDERSTANDING. WILL CONTINUE TO MONITOR.
--- NOTE | 2018-04-04 19:35 | NUR ---
Opening notes Received report. Patient is resting comfortably in bed. No signs of distress noted. Breathing is even and unlabored. MARCI drain and T tube are intact. Dressing to right abdomen is intact and has small amount of red drainage. Will continue to monitor. Danielson catheter is in place draining blood tinged urine. IV in left arm is patent and intact, infusing fluids. IV in right arm is patent and intact, saline locked. No needs at this moment. Bed is in the lowest position, bed rails up x3, bed alarm is on, call light is with the patient.
--- NOTE | 2018-04-04 22:00 | NUR ---
RN rounds Patient is resting in bed. Repositioned the patient for comfort. Denies any pain. All needs met. Safety precautions are in place.
[2018-04-04] MEDS: LATANOPROST 2.5 ML DROPS (XALATAN) OP SCH (22:23)
[2018-04-05] MEDS: PIPERACILLIN/TAZO 3.375/DEX-IS 50 ML IV SCH ×4 (00:08→17:26)
--- NOTE | 2018-04-05 00:30 | NUR ---
RN rounds Patient is asleep in bed. No signs of distress noted. Breathing is even and unlabored. No needs at this moment. Safety precautions are in place.
[2018-04-05 02:26] VITALS: BP_SYST 111
[2018-04-05] MEDS: D5/0.45 NS 1,000 ML IV SCH ×3 (03:16→14:36)
--- NOTE | 2018-04-05 06:14 | NUR ---
RN rounds Patient ambulated to the restroom using a walker, steady gait noted. Patient had 1 small BM. Patient ambulated using a walker back into bed. No signs of distress noted. Emptied 95 ml of serosanguinous drainage from MARCI drain. Emptied 20 ml of green bile colored drainage from T tube.
[2018-04-05 06:50] LABS: BASOPHILS % (AUTO) 0.3 % (0.0-2.0); EOSINOPHILS # (AUTO) 0.2 K/uL (0.0-0.4); HEMATOCRIT 37.4 % (36-54); MEAN CORPUSCULAR HEMOGLOBIN 28 pg (27-31); MEAN CORPUSCULAR HGB CONC 32 % (32-36); MEAN CORPUSCULAR VOLUME 87 fL (79.0-98.0); MONOCYTES # (AUTO) 0.7 K/uL (0.0-1.0); MONOCYTES % (AUTO) 4.4 % (1.7-9.3); NEUTROPHILS # (AUTO) 14.4 K/uL (1.8-7.7); PLATELET COUNT (AUTO) 383 K/uL (130-430); RED BLOOD CELL COUNT(AUTO) 4.28 MIL/uL (4.2-6.2); RED CELL DISTRIBUTION WIDTH 13.6 % (9.0-15.0); WHITE BLOOD COUNT (AUTO) 16.3 K/uL (4.8-10.8)
--- NOTE | 2018-04-05 06:54 | NUR ---
Closing notes Patient is resting comfortably in bed. No signs of distress noted. Breathing is even and unlabored. Patient was educated on incentive spirometer. Used incentive spirometer to 1000. Left wrist IV is patent and intact, infusing fluids. RAC is patent and intact, saline locked. Danielson catheter is in place draining blood tinged urine. T tube is intact draining green bile colored drainage. MARCI drain is intact draining serosanguinous drainage. All needs met. Practice guidelines met throughout the shift. Safety precautions are in place.
[2018-04-05 07:26] LABS: ALANINE AMINOTRANSFERASE 51 U/L (12-78); ALBUMIN 1.7 g/dL (3.4-4.8); ANION GAP 10 (5-15); ASPARTATE AMINOTRANSFERASE 45 U/L (10-37); CALCIUM 8.7 mg/dL (8.4-11.0); CHLORIDE 106 mmol/L (98-107); CREATININE 0.84 mg/dL (0.55-1.30); GLUCOSE 125 mg/dL (70-99); POTASSIUM 3.3 mmol/L (3.5-5.1); SODIUM SERUM 140 mmol/L (136-145); TOTAL BILIRUBIN 3.4 mg/dL (0.0-1.0); UREA NITROGEN, BLOOD 11 mg/dL (8-21)
[2018-04-05 07:51] VITALS: BP_SYST 135
--- NOTE | 2018-04-05 07:53 | NUR ---
OPENING NOTES At initial assessment, patient is awake, alert and orientedx4, denies any pain at this time. Patient on room air, breathing even and unlabored. MARCI-drain and T-tube intact. F/C in place, visible urine output noted. IV site on the left wrist patent and intact, IVF infusing at 100 ml/hr and patient tolerating well. Safety and fall precautions in place, bed is in lowest position and locked, bed alarm on, side rails up x2, call light within reach, will continue to monitor.
[2018-04-05] MEDS: ALBUTEROL SULFATE 0.083% 2.5 MG/3 ML VIAL.NEB INH SCH ×3 (08:14→21:13)
[2018-04-05] MEDS: IPRATROPIUM BROM 0.5 MG/2.5 ML VIAL.NEB (ATROVENT) INH SCH ×3 (08:15→21:01)
[2018-04-05] MEDS ORDERED: POTASSIUM CHLORIDE 10 MEQ TAB.PRT.SR PO ONE (09:00)
--- NOTE | 2018-04-05 09:09 | NUR ---
Surgeon changing dressing: Dr. Garcia makes round: Dr. Garcia makes round and change a new abdominal dressing. Empty MARCI drain with 65 ml of brownish color fluid. Addendum: 04/05/18 at 0926 by Sabrina Werner RN Dr. Garcia also has ordered for PPN per pharmacy.
[2018-04-05] MEDS ORDERED: *PPN PER PHARMACY XX PRN (09:30)
[2018-04-05] MEDS: PANTOPRAZOLE SODIUM 40 MG/VIAL (PROTONIX) IVP SCH (09:48)
[2018-04-05] MEDS: FINASTERIDE 5 MG TABLET (PROSCAR) PO SCH (09:48)
[2018-04-05] MEDS: CARVEDILOL 3.125 MG TABLET (COREG) PO SCH ×2 (09:48→21:00)
[2018-04-05] MEDS: LISINOPRIL 20 MG TABLET PO SCH (09:49)
[2018-04-05] MEDS: TAMSULOSIN HCL 0.4 MG CAP PO SCH (09:49)
--- NOTE | 2018-04-05 10:00 | NUR ---
DC Tele and DC Danielson: Dr. Martinez makes round and has ordered to DC tele change to Med-Surg patient, remove Danielson< he is aware that patient has hematuria with urine ~100 ml last night>, and additional orders.
[2018-04-05 10:06] LABS: PHOSPHORUS 2.4 mg/dL (2.7-4.5)
[2018-04-05 10:47] LABS: NEUTROPHILS % (AUTO) 88.3 % (40.0-70.0)
--- NOTE | 2018-04-05 11:14 | NUR ---
DC Danielson: Remove Danielson catheter as ordered with 350 ml pinkish urine out put. Encourage patient to drink more water. Will continue monitor.
[2018-04-05] MEDS ORDERED: FAT EMULSIONS 250 ML IV SCH (11:15)
--- NOTE | 2018-04-05 11:55 | NUR ---
RN ROUNDS Patient is watching TV, no acute distress noted. Breathing even and unlabored, no respiratory distress. IV site patent and intact, Zosyn is infusing as ordered and tolerating well. AM meds tolerated well. Safety and fall precautions in place, bed is in lowest position and locked, bed alarm is on, side rails up x2, call light within reach, family at bedside at this time. Will continue to monitor.
[2018-04-05 12:02] VITALS: BP_SYST 122
--- NOTE | 2018-04-05 14:12 | NUR ---
RN ROUNDS Patient is awake, watching TV, no s/s of acute distress. Breathing even and unlabored. IVF running at 100 ml/hr and tolerating well. Safety and fall precautions in place. Bed low and locked, alarm on, side rails up x2, call light within reach.
--- NOTE | 2018-04-05 15:00 | NUR ---
Void: Patient has voided 200 ml after Danielson catheter removed with pinkish urine out put. Will continue monitor.
[2018-04-05 16:02] VITALS: BP_SYST 115
--- NOTE | 2018-04-05 16:05 | NUR ---
2nd after catheter removed: Patient has voided with dark yellow urine , 150 ml.
[2018-04-05] MEDS: FAT EMULSIONS 250 ML IV SCH (17:30)
[2018-04-05] MEDS ORDERED: TPN PERIPHERAL IV SCH ×8 (18:00)
[2018-04-05] MEDS ORDERED: POTASSIUM CHLORIDE IV SCH ×8 (18:00)
[2018-04-05] MEDS ORDERED: [UNRECOGNIZED DRUG - OTHER] IV SCH ×8 (18:00)
[2018-04-05] MEDS ORDERED: SODIUM ACETATE IV SCH ×8 (18:00)
--- NOTE | 2018-04-05 18:33 | NUR ---
CLOSING NOTE Patient is awake, alert and oriented x4, denies any pain or discomfort at this time. On room air and no s/s of respiratory distress. Patient is receiving PPN and lipid (see eMAR) as ordered and tolerating well at this time. IV site on the left wrist remains intact and patent, no s/s of infection or infiltration. IVF infusing at prescribed rate. Safety and fall precautions observed throughout the shift. Bed is in lowest position and locked, bed alarm on, side rails up x2, call light within reach. All needs met. Will endorse plan of care. Addendum: 04/05/18 at 1838 by Emily Silva RN IVF reduced rate to 60 cc/hr after PPN and lipid started.
--- NOTE | 2018-04-05 18:55 | NUR ---
Diet changed: Dr. Garcia makes round for 2nd time today. He is aware of Drainages and has ordered to advance diet to Full liquid with Ensure TID for tomorrow.
--- NOTE | 2018-04-05 19:45 | NUR ---
ROUNDS PATIENT RESTING COMFORTABLY IN BED, NOT IN DISTRESS, VITALS STABLE, DENIES ANY PAIN AND DISCOMFORT AT THIS TIME. ASSESSMENT DONE AND DOCUMENTED. SEE FLOWSHEET. NEEDS ATTENDED TO. ASSISTED PATIENT TO THE BEDSIDE COMMODE AND BACK TO BED. SAFETY AND FALL PRECAUTION MEASURES IN PLACED. BED IN LOW AD LOCKED POSITION. CALL LIGHT PLACED WITHIN REACH.
[2018-04-05 20:00] VITALS: BP_SYST 129
--- NOTE | 2018-04-05 21:00 | NUR ---
MEDICATION DUE MEDICATIONS GIVEN SCHEDULED, TOLERATED WELL. WILL CONTINUE TO MONITOR.
[2018-04-05] MEDS: LATANOPROST 2.5 ML DROPS (XALATAN) OP SCH (21:02)
--- NOTE | 2018-04-05 21:10 | NUR ---
PT EMR STATED ATROVENT NOT DUE UNTIL 04/06/18 0700. ATROVENT WAS NOT GIVEN. Addendum: 04/05/18 at 2133 by Andria Pinon RT Amended: Links added.
[2018-04-06] VITALS (8 sets, daily range): BP systolic 105–144
--- NOTE | 2018-04-06 00:15 | NUR ---
PATIENT RESTING: Patient resting quietly. No acute distress noted. Vital signs within normal range.
[2018-04-06] MEDS: PIPERACILLIN/TAZO 3.375/DEX-IS 50 ML IV SCH ×4 (00:23→17:43)
--- NOTE | 2018-04-06 02:07 | NUR ---
ROUNDS PATIENT ASLEEP, VITALS STABLE, NO SIGNS OF ANY PAIN AND DISCOMFORT NOTED. WILL CONTINUE TO MONITOR.
--- NOTE | 2018-04-06 04:14 | NUR ---
PATIENT RESTING: Patient resting quietly. No acute distress noted. Vital signs within normal range.
[2018-04-06] MEDS: D5/0.45 NS 1,000 ML IV SCH ×2 (05:55→10:40)
--- NOTE | 2018-04-06 06:52 | NUR ---
CLOSING NOTES PATIENT AWAKE, VITALS STABLE, DENIES ANY PAIN AND DISCOMFORT AT THIS TIME. ALL NEEDS ATTENDED TO. SAFETY AND FALL MEASURES MAINTAINED. CALL LIGHT PLACED WITHIN REACH.
[2018-04-06 07:22] LABS: ALANINE AMINOTRANSFERASE 44 U/L (12-78); ALBUMIN 1.8 g/dL (3.4-4.8); ANION GAP 8 (5-15); ASPARTATE AMINOTRANSFERASE 32 U/L (10-37); CALCIUM 8.6 mg/dL (8.4-11.0); CHLORIDE 106 mmol/L (98-107); CREATININE 0.91 mg/dL (0.55-1.30); GLUCOSE 125 mg/dL (70-99); POTASSIUM 3.3 mmol/L (3.5-5.1); SODIUM SERUM 139 mmol/L (136-145); TOTAL BILIRUBIN 2.1 mg/dL (0.0-1.0); UREA NITROGEN, BLOOD 9 mg/dL (8-21)
[2018-04-06] MEDS: IPRATROPIUM BROM 0.5 MG/2.5 ML VIAL.NEB (ATROVENT) INH SCH ×3 (07:31→21:47)
[2018-04-06] MEDS: ALBUTEROL SULFATE 0.083% 2.5 MG/3 ML VIAL.NEB INH SCH ×3 (07:31→21:47)
--- NOTE | 2018-04-06 07:44 | NUR ---
OPENING NOTE PT IN BATHROOM AT THIS TIME WITH HELP OF SUPERVISOR OF WAY AND WALKER, PT IN NO DISTRESS. IN LOOSE BM NOTED. PT REORIENTED TO CALL LIGHT USE. IVF INFUSING WELL. SAFETY MAINTAINED.
[2018-04-06 08:09] LABS: BASOPHILS % (AUTO) 0.1 % (0.0-2.0); EOSINOPHILS # (AUTO) 0.2 K/uL (0.0-0.4); EOSINOPHILS % (AUTO) 1.8 % (0.0-4.0); HEMATOCRIT 37.2 % (36-54); LYMPHOCYTES # (AUTO) 0.8 K/uL (1.0-5.5); LYMPHOCYTES % (AUTO) 7.1 % (20.5-51.5); MEAN CORPUSCULAR HEMOGLOBIN 28 pg (27-31); MEAN CORPUSCULAR HGB CONC 32 % (32-36); MEAN CORPUSCULAR VOLUME 86 fL (79.0-98.0); MONOCYTES # (AUTO) 0.6 K/uL (0.0-1.0); MONOCYTES % (AUTO) 5.7 % (1.7-9.3); NEUTROPHILS # (AUTO) 9.1 K/uL (1.8-7.7); NEUTROPHILS % (AUTO) 85.3 % (40.0-70.0); PLATELET COUNT (AUTO) 418 K/uL (130-430); RED BLOOD CELL COUNT(AUTO) 4.34 MIL/uL (4.2-6.2); RED CELL DISTRIBUTION WIDTH 13.4 % (9.0-15.0)
[2018-04-06 08:12] LABS: WHITE BLOOD COUNT (AUTO) 10.7 K/uL (4.8-10.8)
[2018-04-06] MEDS: TAMSULOSIN HCL 0.4 MG CAP PO SCH (08:44)
[2018-04-06] MEDS: FINASTERIDE 5 MG TABLET (PROSCAR) PO SCH (08:46)
[2018-04-06] MEDS: LISINOPRIL 20 MG TABLET PO SCH (08:46)
[2018-04-06] MEDS: CARVEDILOL 3.125 MG TABLET (COREG) PO SCH ×2 (08:47→20:58)
[2018-04-06] MEDS: PANTOPRAZOLE SODIUM 40 MG/VIAL (PROTONIX) IVP SCH (08:49)
--- NOTE | 2018-04-06 11:36 | NUR ---
med pass ivpb zosyn hung at this time. blood sugar checked-131. no distress noted. safety maintained.
--- NOTE | 2018-04-06 11:57 | NUR ---
DC PLANNING Order for dc planning to SNF. Spoke w pt @ bedside in Sinhala & is agreeable w SNF for short term. [facility] prefers [facility] & [facility], has worked @ those facilities in past. Discussed w Dr Martinez in nsg station, states either of the snf's pt prefers is fine. Most likely plan for dc is Tues, will eval pt tomorrow.
--- NOTE | 2018-04-06 13:00 | NUR ---
pt laying in bed with family at bedside, denies any chest pain/ sob. safety maintained.
--- NOTE | 2018-04-06 15:58 | NUR ---
rounds pt laying in bed watching tv. no distress, safety maintained
[2018-04-06] MEDS: FAT EMULSIONS 250 ML IV SCH (17:47)
[2018-04-06] MEDS ORDERED: SODIUM ACETATE IV SCH ×9 (18:00)
[2018-04-06] MEDS ORDERED: [UNRECOGNIZED DRUG - OTHER] IV SCH ×9 (18:00)
[2018-04-06] MEDS ORDERED: TPN PERIPHERAL IV SCH ×9 (18:00)
[2018-04-06] MEDS ORDERED: POTASSIUM CHLORIDE IV SCH ×9 (18:00)
--- NOTE | 2018-04-06 18:00 | NUR ---
PPN AND LIPIDS HUNG AT THIS TIME. ANTIBIOTIC HUNG. BLOOD SUGAR CHECKED WNL. PT IN NO DISTRESS.
--- NOTE | 2018-04-06 18:55 | NUR ---
CLOSING NOTE ALL NEEDS MET THROUGH SHIFT, SAFETY MAINTAINED. WILL ENDORSE CARE TO SPRING TACKER. MARCI DRAIN AND TTUBE WERE DRAINED.
[2018-04-06] MEDS: LATANOPROST 2.5 ML DROPS (XALATAN) OP SCH (20:57)
[2018-04-06] MEDS: DABIGATRAN ETEXILATE MESYLATE 75 MG CAPSULE PO SCH (21:00)
[2018-04-07] MEDS: PIPERACILLIN/TAZO 3.375/DEX-IS 50 ML IV SCH ×5 (00:11→23:15)
[2018-04-07] MEDS: D5/0.45 NS 1,000 ML IV SCH (00:17)
[2018-04-07 00:47] VITALS: BP_SYST 114
[2018-04-07 07:15] LABS: BASOPHILS % (AUTO) 0.2 % (0.0-2.0); EOSINOPHILS # (AUTO) 0.1 K/uL (0.0-0.4); EOSINOPHILS % (AUTO) 1.2 % (0.0-4.0); HEMOGLOBIN 9.8 g/dL (14.0-18.0); LYMPHOCYTES # (AUTO) 0.7 K/uL (1.0-5.5); MEAN CORPUSCULAR HEMOGLOBIN 28 pg (27-31); MEAN CORPUSCULAR HGB CONC 33 % (32-36); MEAN CORPUSCULAR VOLUME 87 fL (79.0-98.0); MONOCYTES # (AUTO) 0.7 K/uL (0.0-1.0); NEUTROPHILS # (AUTO) 7.7 K/uL (1.8-7.7); PLATELET COUNT (AUTO) 343 K/uL (130-430); RED BLOOD CELL COUNT(AUTO) 3.45 MIL/uL (4.2-6.2); RED CELL DISTRIBUTION WIDTH 13.5 % (9.0-15.0); WHITE BLOOD COUNT (AUTO) 9.2 K/uL (4.8-10.8)
[2018-04-07] MEDS: ALBUTEROL SULFATE 0.083% 2.5 MG/3 ML VIAL.NEB INH SCH ×3 (07:28→20:01)
[2018-04-07] MEDS: IPRATROPIUM BROM 0.5 MG/2.5 ML VIAL.NEB (ATROVENT) INH SCH ×3 (07:28→20:01)
[2018-04-07 07:37] LABS: ALANINE AMINOTRANSFERASE 35 U/L (12-78); ALBUMIN 1.4 g/dL (3.4-4.8); ANION GAP 7 (5-15); ASPARTATE AMINOTRANSFERASE 27 U/L (10-37); CALCIUM 8.2 mg/dL (8.4-11.0); CHLORIDE 107 mmol/L (98-107); CREATININE 0.83 mg/dL (0.55-1.30); GLUCOSE 118 mg/dL (70-99); PHOSPHORUS 2.8 mg/dL (2.7-4.5); POTASSIUM 3.3 mmol/L (3.5-5.1); SODIUM SERUM 140 mmol/L (136-145); TOTAL BILIRUBIN 1.6 mg/dL (0.0-1.0); UREA NITROGEN, BLOOD 7 mg/dL (8-21)
--- NOTE | 2018-04-07 07:50 | NUR ---
OPENING NOTE PATIENT RECEIVED RESTING IN BED, PATIENT IS AWAKE, ALERT, AND ORIENTED X 4, ASSISTED PATIENT TO BEDSIDE COMMODE, PATIENT DENIES ANY PAIN OR ACUTE DISTRESS AT THIS TIME, BREATHING IS EVEN AND UNLABORED, IVF INFUSING WELL WITH NO SIGNS OF INFILTRATION, WILL CONTINUE TO MONITOR, FAMILY IS AT BEDSIDE, SAFETY PRECAUTIONS IN PLACE, CALL LIGHT WITHIN REACH.
[2018-04-07 08:16] VITALS: BP_SYST 132
[2018-04-07] MEDS: CARVEDILOL 3.125 MG TABLET (COREG) PO SCH ×2 (09:14→20:30)
[2018-04-07] MEDS: PANTOPRAZOLE SODIUM 40 MG/VIAL (PROTONIX) IVP SCH (09:14)
[2018-04-07] MEDS: TAMSULOSIN HCL 0.4 MG CAP PO SCH (09:14)
[2018-04-07] MEDS: FINASTERIDE 5 MG TABLET (PROSCAR) PO SCH (09:14)
[2018-04-07] MEDS: LISINOPRIL 20 MG TABLET PO SCH (09:15)
--- NOTE | 2018-04-07 09:15 | NUR ---
DC Planning: Per dr Garcia's request: The pt. needs LTAC level of care for PPN, IV ABX, MARCI care dt continued common bile duct leaking.-- Dr Pauly Martinez notified and concurred with LTAC eval.
--- NOTE | 2018-04-07 09:15 | NUR ---
MD ROUNDS DR. MARKS SEEN PATIENT IN ROOM AT THIS TIME.
[2018-04-07] MEDS: DABIGATRAN ETEXILATE MESYLATE 75 MG CAPSULE PO SCH ×2 (09:16→20:32)
--- NOTE | 2018-04-07 10:10 | NUR ---
NOTES PATIENT IS RESTING IN BED, NO SIGNS OF PAIN OR ACUTE DISTRESS IS NOTED, IVF INFUSING WELL WITH NO SIGNS OF INFILTRATION, BREATHING IS EVEN AND UNLABORED, FAMILY IS AT BEDSIDE, WILL CONTINUE TO MONITOR, SAFETY PRECAUTIONS IN PLACE, CALL LIGHT WITHIN REACH.
--- NOTE | 2018-04-07 10:28 | NUR ---
Discharge Planning: DCP faxed pt order to Christiane at [facility] (f [phone] p [phone]); DCP to follow up. Addendum: 04/07/18 at 1448 by Barbara Jackson DP DCP spoke to Christiane at [facility] (f [phone] p [phone]); Christiane stated the patient has a open contract with hospice, Christiane is not sure which company Christiane is going to check with family.
[2018-04-07 11:38] LABS: NEUTROPHILS % (AUTO) 82.6 % (40.0-70.0)
[2018-04-07 12:40] VITALS: BP_SYST 147
--- NOTE | 2018-04-07 12:41 | NUR ---
NOTES PATIENT RESTING IN BED EATING LUNCH AT THIS TIME, PATIENT TOLERATING DIET WELL WITH NO NAUSEA OR VOMITING, IVF INFUSING WELL WITH NO SIGNS OF INFILTRATION, BREATHING IS EVEN AND UNLABORED, NO ACUTE DISTRESS NOTED, PAIN IS CONTROLLED AT THIS TIME, WILL CONTINUE TO MONITOR, SAFETY PRECAUTIONS IN PLACE, CALL LIGHT WITHIN REACH.
[2018-04-07] MEDS ORDERED: FUROSEMIDE 20 MG/2 ML VIAL IVP ONE (12:45)
[2018-04-07] MEDS ORDERED: POTASSIUM CHLORIDE 20 MEQ TAB.PRT.SR PO ONE (12:45)
--- NOTE | 2018-04-07 13:59 | NUR ---
Nutrition F/U Admitting Diagnosis Acute cholecystitis Reviewed Pertinent Medical/Surgical Hx Medical Record Patient Primary RN Medical History Comment: PMH: H/O BPH, chronic atrial fibrillation, HTN,COPD, glaucoma. PSH: pacemaker implantation. 04/04/18 Cardiology Consult note: s/p exploratory laparotomy and resection of common bile duct and placement of a T-tube; acute cholecystitis with gangrene of gallbladder; s/p laparoscopic cholecystectomy done postoperative day #6; excess drainage out of the MARCI drainage site possibly leakage from a bile duct as per ERCP; chronic atrial fibrillation controlled ventricular response; essential hypertension; BPH; no evidence for active congestive heart failure or active angina. POD 4 s/p exploratory laparotomy and resection of common bile duct and placement of T-tube Subjective Information F/U done. Pt in bed, +IV infusing. TPN infusing per MD orders. Per RN, pt it eating well, had BM this morning. Per MD notes, w/ plans to transfer to [place] 04/07 and for PT eval. Per EMR, abd is firm and distended w/ hypoactive bowel sounds. I/O: -1250ml per 12 hrs. TPN intake: 636ml/24 hrs 04/06. MARCI drain total: 250ml per 24 hrs 04/07. PO intake 83% x 3 meals 04/06. Last BM 04/07. Pt is likely meeting adequate nutrition w/ combined intake from TPN and PO. Pt stated that he doesn't care for Ensure milk-like products as they cause him diarrhea. RD will note in Comput[employer]. RD obtained wt w/ bed scale: 261.4 lb (04/07) Current Diet Order/Nutrition Support full liquid x1 day + D20%AA8.5% at 43ml/hr, IL 20% at10ml/hr via peripheral line. Patient/Significant Other Able To Verbalize Education Provided Indicated Pertinent Medications dulcolax, protonix IV, piperacillin/tazobactam IV, zofran, pradaxa, D5%/NaCl IV Pertinent Labs K 3.3 L, ALB 1.4 L, H/H 9.8 L/30 L, BG 118 H, Tbili 1.6 H, AST 27 WNL (improved), BUN 7 L Height (Feet) 6 feet Height (Inches) 6.00 inches Weight (Pounds) 247 pounds (03/30/18) BED SCALE WT: 261.4 lb (04/07) Weight (Calculated Kilograms) 112.457667 kilograms Patient Weight 112.037 kg Body Mass Index 28.54 kg/m2 %IBW 115 [place]/Adjusted Body Weight 214 lb, 97 kg Recent Weight Change No - per pt Weight Status Overweight Gastrointestinal Symptoms None Last BM 04/07/18 Difficulty With: Chewing Food Allergies No - per pt Usual Diet At Home regular diet, home cooked meals per pt Skin Integrity Comment: Tushar scale: 19; Per Bottle Carrier note (04/04): Bilateral heels have blanchable erythema; Abdomen has intact surgical dressing, MARCI drain and T-tube from a recent exploratory laparotomy with cholangiogram and repair of common bile duct leak. Per RN notes, 1+ pitting edema of R bilateral foot, 1+ pitting edema of R hand. Current % PO Good 83% x 3 meals Estimated Energy Expenditure (kcals/day) 3391-2318 kcal/day (25-30 kcal/kg IBW for maintenance) Estimated Protein Required (g/day) 116-146 gm/day (1.2-1.5 gm/kg IBW for post-surgery repletion) Estimated Fluid Required (l/day) 2.4 L/day (25ml/kg IBW for Geriatric maintenance) Problem/Etiology/Signs/Symptoms Inadequate nutritional intake related to physiological factors as evidenced by pt's PO intake of 61% and pt's report of ill fitting dentures. *ongoing Expected Outcomes/Goals Monitor pt appetite, PO intake and TPN intake w/ goal of pt meeting at least 75% of estimated nutritional needs, labs trending WNL, normal GI function, skin integrity/wt maintenance. Dietitian Recommendations * Recommend continuing full liquid diet per MD * Continue D20% AA 8.5% at 43ml/hr, IL20% zt 10ml/hr via peripheral line. TPN provides: 1006 kcal, 44 gm protein and .6 gm CHO/kg/min daily. Follow Up High Risk: F/U in 2-3 days
--- NOTE | 2018-04-07 14:13 | NUR ---
Dietitian Recommendations * Recommend continuing full liquid diet per MD * Continue D20% AA 8.5% at 43ml/hr, IL20% zt 10ml/hr via peripheral line. TPN provides: 1006 kcal, 44 gm protein and .6 gm CHO/kg/min daily. Please see Nutrition F/U note for details. [facility], RD
--- NOTE | 2018-04-07 14:50 | NUR ---
NOTES PATIENT IS RESTING IN BED AT THIS TIME, IVF INFUSING WELL, NO SIGNS OF PAIN OR DISTRESS IS NOTED AT THIS TIME, BREATHING IS EVEN AND UNLABORED, FAMILY IS AT BEDSIDE, WILL CONTINUE TO MONITOR, SAFETY PRECAUTIONS IN PLACE, CALL LIGHT WITHIN REACH.
[2018-04-07 16:02] VITALS: BP_SYST 114
[2018-04-07] MEDS: FAT EMULSIONS 250 ML IV SCH (17:50)
[2018-04-07] MEDS: POTASSIUM ACETATE IV SCH ×10 (17:51)
[2018-04-07] MEDS: TPN PERIPHERAL IV SCH ×10 (17:51)
[2018-04-07] MEDS: [UNRECOGNIZED DRUG - OTHER] IV SCH ×10 (17:51)
[2018-04-07] MEDS: SODIUM ACETATE IV SCH ×10 (17:51)
--- NOTE | 2018-04-07 18:33 | NUR ---
CLOSING NOTE PATIENT IS RESTING IN BED, IVF INFUSING WELL WITH NO SIGNS OF INFILTRATION, PATIENT DENIES ANY PAIN OR DISTRESS, BREATHING IS EVEN AND UNLABORED, ALL NEEDS WERE MET THROUGHOUT SHIFT, WILL ENDORSE REPORT TO ONCOMING NURSE, SAFETY PRECAUTIONS IN PLACE, CALL LIGHT WITHIN REACH.
--- NOTE | 2018-04-07 19:26 | NUR ---
OPENING NOTE RECEIVED PT AND REPORT FROM DAY SHIFT. PT IS LAYING IN BED. PT ABLE TO VERBALIZE NEEDS. PT ON ROOM AIR. PT DENIES DISTRESS OR DISCOMFORT. IV INTACT AND PATENT RUNNING IVF, TPN AND LIPIDS PER ORDERS. DRESSINGS ARE CLEAN DRY AND INTACT. MARCI DRAIN AND T TUBE IN PLACE DRAINING BROWN DRAINAGE. FALL AND SAFETY PRECAUTIONS IN PLACE. BED LOCKED IN LOWEST POSITION. BED ALARM ON. CALL LIGHT WITH PT. WILL CONTINUE TO MONITOR.
[2018-04-07 20:00] VITALS: BP_SYST 122
--- NOTE | 2018-04-07 20:30 | NUR ---
MEDICATION ADMINISTRATION ADMINISTERED MEDICATION PER ORDERS. PT SITTING AT SIDE OF BED. PT AGREED NOT TO AMBULATE WITHOUT ASSISTANCE. WILL CONTINUE TO MONITOR.
[2018-04-07] MEDS: LATANOPROST 2.5 ML DROPS (XALATAN) OP SCH (20:35)
--- NOTE | 2018-04-07 22:00 | NUR ---
DRESSING REINFORCED SLIGHT SATURATION NOTED TO DRESSING NEAR DRAINAGE. DRESSING REINFORCED WITH GAUZE. WILL CONTINUE TO MONITOR.
--- NOTE | 2018-04-07 23:16 | NUR ---
BS/ IV ABX ADMINISTERED IV ABX PER ORDERS. BLOOD SUGAR READING OF 106, NO INSULIN COVERAGE PER ORDERS. PT SLEEPING IN BED. FAMILY AT BEDSIDE. WILL CONTINUE TO MONITOR.
[2018-04-08 00:25] VITALS: BP_SYST 124
--- NOTE | 2018-04-08 01:35 | NUR ---
ROUNDING NOTE PT IS SLEEPING IN BED. NO S/S OF DISTRESS OR DISCOMFORT. CALL LIGHT WITH PT. WILL CONTINUE TO MONITOR.
--- NOTE | 2018-04-08 03:30 | NUR ---
T TUBE EMPTIED 90 ML OF BROWN FLUID FROM T TUBE. PT RESTING IN BED. WILL CONTINUE TO MONITOR.
[2018-04-08] MEDS: PIPERACILLIN/TAZO 3.375/DEX-IS 50 ML IV SCH ×4 (05:06→23:04)
--- NOTE | 2018-04-08 06:37 | NUR ---
CLOSING NOTE WILL ENDORSE CARE AND REPORT TO DAY SHIFT. PT IS SLEEPING AT THIS TIME. NO S/S OF DISTRESS OR DISCOMFORT. PT IN STABLE CONDITION. NO SIGNIFICANT CHANGES TO NOTE. ALL NEEDS MET THROUGHOUT SHIFT. TPN AND LIPIDS RUNNING PER ORDERS. WILL CONTINUE TO MONITOR. CALL LIGHT WITH PT.
[2018-04-08 07:30] LABS: BASOPHILS % (AUTO) 0.3 % (0.0-2.0); EOSINOPHILS # (AUTO) 0.1 K/uL (0.0-0.4); EOSINOPHILS % (AUTO) 1.5 % (0.0-4.0); HEMATOCRIT 29.1 % (36-54); HEMOGLOBIN 9.7 g/dL (14.0-18.0); LYMPHOCYTES # (AUTO) 0.9 K/uL (1.0-5.5); LYMPHOCYTES % (AUTO) 10.9 % (20.5-51.5); MEAN CORPUSCULAR HEMOGLOBIN 28 pg (27-31); MEAN CORPUSCULAR HGB CONC 33 % (32-36); MEAN CORPUSCULAR VOLUME 85 fL (79.0-98.0); MONOCYTES # (AUTO) 0.6 K/uL (0.0-1.0); MONOCYTES % (AUTO) 7.5 % (1.7-9.3); NEUTROPHILS # (AUTO) 6.5 K/uL (1.8-7.7); NEUTROPHILS % (AUTO) 79.8 % (40.0-70.0); PLATELET COUNT (AUTO) 344 K/uL (130-430); RED BLOOD CELL COUNT(AUTO) 3.44 MIL/uL (4.2-6.2); RED CELL DISTRIBUTION WIDTH 13.6 % (9.0-15.0); WHITE BLOOD COUNT (AUTO) 8.1 K/uL (4.8-10.8)
[2018-04-08 07:49] LABS: ANION GAP 5 (5-15); CALCIUM 8.5 mg/dL (8.4-11.0); CHLORIDE 107 mmol/L (98-107); CREATININE 0.91 mg/dL (0.55-1.30); GLUCOSE 105 mg/dL (70-99); POTASSIUM 3.9 mmol/L (3.5-5.1); SODIUM SERUM 141 mmol/L (136-145); UREA NITROGEN, BLOOD 8 mg/dL (8-21)
[2018-04-08] MEDS: ALBUTEROL SULFATE 0.083% 2.5 MG/3 ML VIAL.NEB INH SCH ×3 (07:55→21:08)
[2018-04-08] MEDS: IPRATROPIUM BROM 0.5 MG/2.5 ML VIAL.NEB (ATROVENT) INH SCH ×3 (07:55→21:08)
[2018-04-08 07:58] LABS: ALANINE AMINOTRANSFERASE 33 U/L (12-78); ALBUMIN 1.6 g/dL (3.4-4.8); ASPARTATE AMINOTRANSFERASE 30 U/L (10-37); PHOSPHORUS 3.1 mg/dL (2.7-4.5); TOTAL BILIRUBIN 1.3 mg/dL (0.0-1.0)
--- NOTE | 2018-04-08 08:55 | NUR ---
opening note patient is resting in bed, family present at the bedside, A&Ox4, assessment completed, educated superintendent system operation light system and plan of care, patient verbalized understanding, no other needs at this time, assisted patient with standing up with walker about to walk with PT in the halls, IV line patent and intact.
[2018-04-08 09:02] VITALS: BP_SYST 118
[2018-04-08] MEDS: PANTOPRAZOLE SODIUM 40 MG/VIAL (PROTONIX) IVP SCH (09:05)
--- NOTE | 2018-04-08 09:05 | NUR ---
Medication patient just finished walking with PT, family present, assisted onto the chair to eat his breakfast, provided education on medication uses and side effects, patient verbalized understanding and tolerated well, no other needs at this time, call light within reach, fall and aspiration precautions in place, IV line patent and intact.
[2018-04-08] MEDS: FINASTERIDE 5 MG TABLET (PROSCAR) PO SCH (09:06)
[2018-04-08] MEDS: TAMSULOSIN HCL 0.4 MG CAP PO SCH (09:06)
[2018-04-08] MEDS: CARVEDILOL 3.125 MG TABLET (COREG) PO SCH ×2 (09:06→20:33)
[2018-04-08] MEDS: LISINOPRIL 20 MG TABLET PO SCH (09:06)
[2018-04-08] MEDS: DABIGATRAN ETEXILATE MESYLATE 75 MG CAPSULE PO SCH ×2 (09:08→20:32)
--- NOTE | 2018-04-08 09:40 | NUR ---
Dr Garcia rounds assessing patient in room, dressing change completed.
[2018-04-08] MEDS ORDERED: FUROSEMIDE 20 MG/2 ML VIAL IVP ONE (10:30)
--- NOTE | 2018-04-08 10:54 | NUR ---
ultrasound in room with patient.
--- NOTE | 2018-04-08 12:22 | NUR ---
Medication patient is resting in bed, provided education on medication uses and side effects, patient verbalized understanding and tolerated well, lasix was administered late d/t ultrasound being in the room, no other needs at this time, bed at the lowest position, call light within reach, bed alarm on, two side rails up, fall and aspiration precautions in place, IV line patent and intact.
[2018-04-08 12:42] VITALS: BP_SYST 120
--- NOTE | 2018-04-08 12:51 | NUR ---
[employer]IE[employer] treatment has been supervised by this RPT
--- NOTE | 2018-04-08 13:00 | NUR ---
DC Planning: Received call back from Christiane, stated the pt is medically accepted but pending financial approval from her administration. She stated the pt. was on Hospice in early March 2018, and that needs to be cleared first. She will call back when has approval for the transfer. The pt and niece agreed with the transfer/poc.
--- NOTE | 2018-04-08 13:20 | NUR ---
rounds assisted patient with sitting on the edge of the bed, emptied urinal, no other needs at this time, bed at the lowest position, call light within reach, bed alarm on, two side rails up, fall and aspiration precautions in place, IV line patent and intact.
--- NOTE | 2018-04-08 15:40 | NUR ---
rounds patient is resting in bed, warm blanket offered per patient, emptied urinal, no other needs at this time, bed at the lowest position, call light within reach, bed alarm on, two side rails up, fall and aspiration precautions in place, IV line patent and intact.
[2018-04-08 16:54] VITALS: BP_SYST 106
--- NOTE | 2018-04-08 18:05 | NUR ---
Medication patient is resting in bed, provided education on medication uses and side effects, patient verbalized understanding and tolerated well, no other needs at this time, bed at the lowest position, call light within reach, bed alarm on, two side rails up, fall and aspiration precautions in place, IV line patent and intact.
[2018-04-08] MEDS: FAT EMULSIONS 250 ML IV SCH (18:11)
[2018-04-08] MEDS: SODIUM ACETATE IV SCH ×10 (18:13)
[2018-04-08] MEDS: [UNRECOGNIZED DRUG - OTHER] IV SCH ×10 (18:13)
[2018-04-08] MEDS: POTASSIUM ACETATE IV SCH ×10 (18:13)
[2018-04-08] MEDS: TPN PERIPHERAL IV SCH ×10 (18:13)
--- NOTE | 2018-04-08 18:20 | NUR ---
CLOSING NOTE patient is resting in bed, drained MARCI drainage, all needs met for shift, will endorse report to noc shift nurse, no other needs at this time, bed at the lowest position, call light within reach, bed alarm on, two side rails up, fall and aspiration precautions in place, IV line patent and intact.
--- NOTE | 2018-04-08 19:25 | NUR ---
OPENING NOTE RECEIVED PT AND REPORT FROM DAY SHIFT. PT IS SITTING UP IN BED. FAMILY AT BEDSIDE. PT ABLE TO MAKE NEEDS KNOWN. PT ON ROOM AIR. IV IS INTACT AND RUNNING TPN AND SALINE PER ORDERS. ABDOMINAL DRESSING IS CLEAN DRY AND INTACT. MARCI DRAIN AND TTUBE DRAIN IN PLACE AND DRAINING BROWN DRAINAGE VIA GRAVITY. FALL AND SAFETY PRECAUTIONS IN PLACE. BED LOCKED IN LOWEST POSITION. BED ALARM ON. CALL LIGHT WITH PT. WILL CONTINUE TO MONITOR.
--- NOTE | 2018-04-08 19:40 | NUR ---
EMPTIED MARCI DRAIN EMPTIED 80 ML OF BROWN FLUID FROM MARCI DRAIN.
[2018-04-08 20:00] VITALS: BP_SYST 117
[2018-04-08] MEDS: LATANOPROST 2.5 ML DROPS (XALATAN) OP SCH (20:33)
--- NOTE | 2018-04-08 20:37 | NUR ---
MEDICATION ADMINISTRATION ADMINISTERED MEDICATION PER ORDERS. PT RESTING IN BED. PT DENIES ANY NEEDS AT THIS TIME. FAMILY AT BEDSIDE. WILL CONTINUE TO MONITOR. CALL LIGHT WITH PT.
--- NOTE | 2018-04-08 22:00 | NUR ---
MARCI DRAIN, T TUBE EMPTIED 15 ML FROM T TUBE OF BROWN FLUID. EMPTIED 105 ML OF BROWN FLUID FROM MARCI DRAIN.
--- NOTE | 2018-04-08 23:06 | NUR ---
MEDICATION ADMINISTRATION/ BS BLOOD SUGAR READING OF 106, NO COVERAGE. ADMINISTERED IV ABX PER ORDERS.
[2018-04-08 23:32] VITALS: BP_SYST 103
--- NOTE | 2018-04-09 02:27 | NUR ---
EMPTIED MARCI AND T-TUBE DRAIN MARCI DRAINAGE OF 100 ML. T TUBE DRAINAGE OF 20 ML. NO OTHER NEEDS. CALL LIGHT WITH PT. WILL CONTINUE TO MONITOR.
--- NOTE | 2018-04-09 03:30 | NUR ---
MARCI DRAIN EMPTIED PT SITTING IN BED AFTER RETURNING FROM THE BATHROOM. EMPTIED 110 ML OF BROWN DRAINAGE FROM MARCI DRAIN. NO OTHER NEEDS. CALL LIGHT WITH PT. WILL CONTINUE TO MONITOR.
[2018-04-09] MEDS: PIPERACILLIN/TAZO 3.375/DEX-IS 50 ML IV SCH ×3 (05:09→17:51)
--- NOTE | 2018-04-09 05:11 | NUR ---
BLOOD SUGAR/ IV ABX ADMINISTERED IV ABX PER ORDERS. BLOOD SUGAR READING OF 119. NO COVERAGE PER SLIDING SCALE. EMPTIED URINAL. NO OTHER NEEDS. WILL CONTINUE TO MONITOR.
--- NOTE | 2018-04-09 06:28 | NUR ---
MARCI DRAIN/ T-TUBE EMPTIED 110 ML FROM MARCI DRAIN. EMPTIED 15 ML FROM T-TUBE.
--- NOTE | 2018-04-09 06:49 | NUR ---
CLOSING NOTE WILL ENDORSE CARE AND REPORT TO DAY SHIFT NURSE. PT IS CURRENTLY RESTING IN BED WITH EYES OPENED. PT IN STABLE CONDITION. ALL NEEDS MET THROUGHOUT SHIFT. PT DENIES PAIN AT THIS TIME. NO SIGNIFICANT CHANGES TO REPORT. IVF RUNNING PER ORDERS. TPN AND LIPIDS RUNNING PER ORDERS. FALL AND SAFETY PRECAUTIONS MAINTAINED. WILL CONTINUE TO MONITOR. CALL LIGHT WITH PT.
[2018-04-09 07:32] VITALS: BP_SYST 111
[2018-04-09] MEDS: ALBUTEROL SULFATE 0.083% 2.5 MG/3 ML VIAL.NEB INH SCH ×3 (07:32→21:05)
[2018-04-09] MEDS: IPRATROPIUM BROM 0.5 MG/2.5 ML VIAL.NEB (ATROVENT) INH SCH ×3 (07:32→21:05)
--- NOTE | 2018-04-09 07:50 | NUR ---
Opening note patient received resting in bed, patient denies any pain or distress at this time, IVF infusing well with no signs of infiltration, patient is A&O x 4, breathing is even and unlabored, educated patient on plan of care and call light system, assessment completed, will continue to monitor, family at bedside, safety precautions in place, call light within reach.
[2018-04-09 08:12] LABS: ALANINE AMINOTRANSFERASE 35 U/L (12-78); ALBUMIN 1.6 g/dL (3.4-4.8); ANION GAP 6 (5-15); ASPARTATE AMINOTRANSFERASE 25 U/L (10-37); CALCIUM 8.7 mg/dL (8.4-11.0); CHLORIDE 105 mmol/L (98-107); CREATININE 0.99 mg/dL (0.55-1.30); GLUCOSE 117 mg/dL (70-99); PHOSPHORUS 3.3 mg/dL (2.7-4.5); POTASSIUM 4.1 mmol/L (3.5-5.1); SODIUM SERUM 138 mmol/L (136-145); UREA NITROGEN, BLOOD 8 mg/dL (8-21)
[2018-04-09 08:18] VITALS: BP_SYST 132
--- NOTE | 2018-04-09 08:45 | NUR ---
NEW IV patient removed IV from left wrist, new IV started on left forearm 22g.
--- NOTE | 2018-04-09 09:00 | NUR ---
Dr. Garcia seen patient MD seen patient in room, emptied MARCI drain with 100ml, and changed the abdominal dressing.
[2018-04-09] MEDS: PANTOPRAZOLE SODIUM 40 MG/VIAL (PROTONIX) IVP SCH (09:12)
[2018-04-09] MEDS: LISINOPRIL 20 MG TABLET PO SCH (09:12)
[2018-04-09] MEDS: TAMSULOSIN HCL 0.4 MG CAP PO SCH (09:12)
[2018-04-09] MEDS: CARVEDILOL 3.125 MG TABLET (COREG) PO SCH ×2 (09:12→20:43)
[2018-04-09] MEDS: FINASTERIDE 5 MG TABLET (PROSCAR) PO SCH (09:12)
[2018-04-09] MEDS: DABIGATRAN ETEXILATE MESYLATE 75 MG CAPSULE PO SCH ×2 (09:14→20:41)
--- NOTE | 2018-04-09 12:00 | NUR ---
NOTES / BLOOD SUGAR PATIENT IS RESTING IN BED, PATIENT DENIES ANY ACUTE DISTRESS OR PAIN AT THIS TIME, BLOOD SUGAR IS 107, IVF INFUSING WELL WITH NO SIGNS OF INFILTRATION, BREATHING IS EVEN AND UNLABORED, WILL CONTINUE TO MONITOR, SAFETY PRECAUTIONS IN PLACE, CALL LIGHT WITHIN REACH.
[2018-04-09 12:02] VITALS: BP_SYST 111
--- NOTE | 2018-04-09 14:11 | NUR ---
Discharge Planning: LORENZO followed up with Christiane from [facility] (f [phone] p [phone]): Christiane is still waiting for CM at [facility] ([phone]). DCP tried per Christiane request to acquire a revocation letter seizing hospice care. DCP spoke to Halie at [facility] ([phone]), CM is out sick. I gave Halie the number to reach Christiane.
--- NOTE | 2018-04-09 14:39 | NUR ---
Notes patient is resting in bed, IVF infusing well with no signs of infiltration, patient denies any pain or distress at this time, breathing is even and unlabored, patient tolerating TPN and lipids well, will continue to monitor, safety precautions in place, call light within reach.
--- NOTE | 2018-04-09 15:21 | NUR ---
MARCI drain emptied 60 ml emptied from MARCI drain at this time.
[2018-04-09 16:02] VITALS: BP_SYST 121
[2018-04-09] MEDS: FAT EMULSIONS 250 ML IV SCH (17:55)
[2018-04-09] MEDS ORDERED: POTASSIUM ACETATE IV SCH ×10 (18:00)
[2018-04-09] MEDS ORDERED: SODIUM ACETATE IV SCH ×10 (18:00)
[2018-04-09] MEDS ORDERED: [UNRECOGNIZED DRUG - OTHER] IV SCH ×10 (18:00)
[2018-04-09] MEDS ORDERED: TPN PERIPHERAL IV SCH ×10 (18:00)
--- NOTE | 2018-04-09 18:50 | NUR ---
CLOSING NOTE PATIENT IS RESTING IN BED, A&O X4, FAMILY IS AT BEDSIDE, IVF INFUSING WELL WITH NO SIGNS OF INFILTRATION, PATIENT DENIES ANY ACUTE DISTRESS OR PAIN AT THIS TIME, ALL NEEDS WERE MET THROUGHOUT SHIFT, WILL ENDORSE REPORT TO ONCOMING NURSE, SAFETY PRECAUTIONS IN PLACE, CALL LIGHT WITHIN REACH.
--- NOTE | 2018-04-09 19:54 | NUR ---
Initial notes Received handoff report from offgoing nurse at the bedside. Patient is awake and alert, resting comfortably in bed. No SOB, no acute distress, no complaints of pain at this time. Bed is locked, in the lowest position, 2x side rails up, bed alarm is on. Call light is within reach. Explained plan of care to the patient. Patient verbalized understanding. Will continue with plan of care.
[2018-04-09 20:00] VITALS: BP_SYST 128
[2018-04-09] MEDS: LATANOPROST 2.5 ML DROPS (XALATAN) OP SCH (20:43)
--- NOTE | 2018-04-09 21:45 | NUR ---
Patient ambulated to the restroom and back to bedside chair using a walker. Gait is steady, but needs minimal assistance. Now resting comfortably in bedside chair. No SOB, no acute distress, no complaints of pain at this time.
--- NOTE | 2018-04-09 23:48 | NUR ---
Patient is resting comfortably in bed with awake and alert. No SOB, no acute distress, no complaints of pain at this time. Bed is locked, in the lowest position, 2x side rails up. Call light within reach. Patient refuses bed alarm. is at the bedside.
[2018-04-10] MEDS: PIPERACILLIN/TAZO 3.375/DEX-IS 50 ML IV SCH ×4 (00:04→17:54)
--- NOTE | 2018-04-10 02:35 | NUR ---
Patient is resting comfortably in bed sleeping. No SOB, no acute distress, no signs of pain or facial grimacing. Breathing is even and unlabored with visible chest rise and fall noted. Call light within reach. at the bedside.
[2018-04-10 04:22] VITALS: BP_SYST 94
--- NOTE | 2018-04-10 05:30 | NUR ---
Patient had a large bowel movement, diarrhea, that was reported by the spouse. Now back in bed resting comfortably.
[2018-04-10 07:30] VITALS: BP_SYST 118
[2018-04-10] MEDS: IPRATROPIUM BROM 0.5 MG/2.5 ML VIAL.NEB (ATROVENT) INH SCH ×2 (07:32→15:58)
[2018-04-10] MEDS: ALBUTEROL SULFATE 0.083% 2.5 MG/3 ML VIAL.NEB INH SCH ×2 (07:32→15:58)
--- NOTE | 2018-04-10 07:32 | NUR ---
Closing Notes Handoff report given to oncoming dayshift nurse at the bedside. Patient is awake and alert, resting comfortably in bed. No SOB, no acute distress, no complaints of pain at this time. Bed is locked, in the lowest position, 2x side rails up, call light is within reach. Spouse at the bedside. Currently receiving TPN, lipids, at ordered rate. Fall and safety precautions maintained. All needs have been met during this shift.
[2018-04-10 07:44] LABS: ALANINE AMINOTRANSFERASE 42 U/L (12-78); ALBUMIN 2.3 g/dL (3.4-4.8); ANION GAP 9 (5-15); ASPARTATE AMINOTRANSFERASE 34 U/L (10-37); CALCIUM 9.6 mg/dL (8.4-11.0); CHLORIDE 104 mmol/L (98-107); CREATININE 0.93 mg/dL (0.55-1.30); GLUCOSE 107 mg/dL (70-99); POTASSIUM 4.8 mmol/L (3.5-5.1); SODIUM SERUM 138 mmol/L (136-145); TOTAL BILIRUBIN 1.2 mg/dL (0.0-1.0); UREA NITROGEN, BLOOD 12 mg/dL (8-21)
--- NOTE | 2018-04-10 08:00 | NUR ---
AM NOTES Patient awake, alert, orientedx4. English speaking. No s/s of distress or SOB. No pain reported. Bed in lowest position, call light within reach. IV site intact, patent ,dressing is dry. IVF, TPN, Lipids running as ordered. Family at bedside. MARCI drain intact, suctioned, with minimal yellow/brown drainage. T-tube intact with moderate brown/yellow drainage. Will. cont. to monitor.
[2018-04-10] MEDS: TAMSULOSIN HCL 0.4 MG CAP PO SCH (08:12)
[2018-04-10] MEDS: PANTOPRAZOLE SODIUM 40 MG/VIAL (PROTONIX) IVP SCH (08:12)
[2018-04-10] MEDS: VANCOMYCIN HCL 250 MG CAPSULE PO SCH ×3 (08:12→17:54)
[2018-04-10] MEDS: FINASTERIDE 5 MG TABLET (PROSCAR) PO SCH (08:12)
[2018-04-10] MEDS: CARVEDILOL 3.125 MG TABLET (COREG) PO SCH (08:13)
[2018-04-10] MEDS: LISINOPRIL 20 MG TABLET PO SCH (08:13)
[2018-04-10] MEDS: DABIGATRAN ETEXILATE MESYLATE 75 MG CAPSULE PO SCH (08:14)
--- NOTE | 2018-04-10 08:30 | NUR ---
C/O DIARRHEA Dr. Martinez made aware. Educated patient on indication of stool collection to rule out c-diff, patient verbalized understanding. Will cont. to monitor.
[2018-04-10] MEDS ORDERED: LACTOBACILLUS RHAMNOSUS GG 1 CAP CAPSULE PO SCH (09:00)
--- NOTE | 2018-04-10 10:45 | NUR ---
DC Planning: f/u with Christiane, stated still does not have the revocation letter from [facility]. Xavi confirmed with pt and spouse with Tajik speaking RN that the pt. never signed up with any hospice. Xavi called Halie at # [phone] but the voice message answered as ADOP. CM called [facility] main office in [place] # [phone], s/w Gabbi who assisted verifying whether the pt. is on [facility] hospice service list. After her searching, per Gabbi the pt.was not on the service. For further investigation, Gabbi sent email to her billing department and notified her director name "Shashank" who will be return my call after his meeting. Addendum: 04/10/18 at 1622 by Shahla Mckeon RN Late entry: There was no call from Mr. Encarnacion, sales administrator from [facility]. Per Christiane who was in contacted with [facility] and received the Revocation letter from [place]. Xavi and ANASTASIIA Ivey as director of event management informed the pt of the above , the pt then signed acknowledging that he is not on the hospice service with [facility]. The signed copy given to pt. XAVI called /lvm to pt's niece: Tennille. The original signed Revocation letter was filed in pt.'s chart. The pt. made aware that he will be transfer to [facility] today. -- Susan/Alejandra RN made aware.
--- NOTE | 2018-04-10 11:30 | NUR ---
Incision care: 1. Transverse Incision: noted with amy all intact. Minimal erythema/redness noted. Cleansed with normal saline, covered with sterile dry dressing 2. MARCI insertion site: sutures still intact, redness noted but no drainage. Cleansed with normal saline, covered with sterile drain sponge 3. T-tube: redness noted around the site. Cleansed with normal saline, covered with sterile drain sponge. 4. Lap astrid incision(x2) above and below (1) the transverse incision are all dry and healed.
--- NOTE | 2018-04-10 11:45 | NUR ---
MD ROUNDS: Seen by Dr. Garcia, aware of the MARCI and T tube output.
[2018-04-10 12:07] VITALS: BP_SYST 101
--- NOTE | 2018-04-10 14:11 | NUR ---
SPOKE TO MARCELO SY Regarding d/c planning. Patient will be transferred to [facility] room 208 bed C. Phone number to give report is [phone]. Bed is available after 7PM today per Christiane.
--- NOTE | 2018-04-10 16:21 | NUR ---
Discharge Planning: DCP updated pts packet and took to nurse station and spoke to pt nurse.
--- NOTE | 2018-04-10 16:21 | NUR ---
Nutrition F/U Admitting Diagnosis Acute cholecystitis Reviewed Pertinent Medical/Surgical Hx Medical Record Patient Primary RN Burmese-speaking RN/work adjustment instructor Medical History Comment: PMH: H/O BPH, chronic atrial fibrillation, HTN,COPD, glaucoma. PSH: pacemaker implantation. 04/04/18 Cardiology Consult note: s/p exploratory laparotomy and resection of common bile duct and placement of a T-tube; acute cholecystitis with gangrene of gallbladder; s/p laparoscopic cholecystectomy done postoperative day #6; excess drainage out of the MARCI drainage site possibly leakage from a bile duct as per ERCP; chronic atrial fibrillation controlled ventricular response; essential hypertension; BPH; no evidence for active congestive heart failure or active angina. POD 7 s/p exploratory laparotomy and resection of common bile duct and placement of T-tube Subjective Information Pt seen resting in bed, lunch tray visible eaten at bedside. Pt continues to only take in broth, fruit ice, and juice full liquid items. TPN seen infusing as per MD/pharmacy orders. Pt is likely meeting lower end of nutritional requirements w/ combined intake from TPN and PO. Pt stated that he doesn't care for Ensure milk-like products as they cause diarrhea. RD noted in [employer]. Current Diet Order/Nutrition Support Full liquid x4 days + D20%, AA8.5% at 43 ml/hr, IL20% at 10ml/hr via peripheral line Patient/Significant Other Able To Verbalize Education Provided Indicated Pertinent Medications dulcolax suppository, protonix IV, piperacillin/tazobactam IV, zofran Pertinent Labs K 4.8 WNL (improved), ALB 2.3 L, H/H 9.7 L/29.1 L, BG 107 H, Tbili 1.2 H, BUN 12 WNL (improved) Height (Feet) 6 feet Height (Inches) 6.00 inches Weight (Pounds) 247 pounds (03/30/18) BED SCALE WT: 261.4 lb (04/07) Weight (Calculated Kilograms) 112.890324 kilograms Patient Weight 112.037 kg Body Mass Index 28.54 kg/m2 %IBW 115 Cisco/Adjusted Body Weight 214 lb, 97 kg Recent Weight Change No - per pt Weight Status Overweight Gastrointestinal Symptoms None Last BM 04/07/18 Difficulty With: Chewing Food Allergies No - per pt Usual Diet At Home regular diet, home cooked meals per pt Skin Integrity Comment: Tushar scale: 19; Per Principal Developer note (04/04/18): Bilateral heels have blanchable erythema; Abdomen has intact surgical dressing, MARCI drain and T-tube from a recent exploratory laparotomy with cholangiogram and repair of common bile duct leak. Per RN notes, 1+ non-pitting edema of R bilateral foot; 1+ non-pitting edema of R hand. Current % PO 70% average x5 meals -- fair Estimated Energy Expenditure (kcals/day) 1040-7152 kcal/day (25-30 kcal/kg IBW for maintenance) Estimated Protein Required (g/day) 116-146 gm/day (1.2-1.5 gm/kg IBW for post-surgery repletion) Estimated Fluid Required (l/day) 2.4 L/day (25ml/kg IBW for Geriatric maintenance) Problem/Etiology/Signs/Symptoms Inadequate nutritional intake related to physiological factors as evidenced by pt's PO intake of 61% and pt's report of ill fitting dentures. *ongoing Expected Outcomes/Goals Monitor pt appetite, PO intake and TPN intake w/ goal of pt meeting at least 75% of estimated nutritional needs, labs trending WNL, normal GI function, skin integrity/wt maintenance. Dietitian Recommendations * Recommend continuing full liquid diet per MD * Recommend continuing PPN D20%, AA8.5% at 43 ml/hr, IL20% at 10 ml/hr via peripheral line (PPN provides: 1006 kcal/day, 44 gm protein/day, 0.6 gm CHO/kg/min/day, and 1272 ml free water/day) Follow Up High Risk: F/U in 2-3 days
--- NOTE | 2018-04-10 16:23 | NUR ---
DC Planning: bed assignment at [facility], per Christiane: room 208C, bed available after 7 pm, RN to report # [phone]. RN Alejandra/ANASTASIIA Davis made aware. They will assist calling [facility] ambulance for the transfer and to notify the family about the discharge to [facility].
--- NOTE | 2018-04-10 16:28 | NUR ---
Dietitian Recommendations * Recommend continuing full liquid diet per MD * Recommend continuing PPN D20%, AA8.5% at 43 ml/hr, IL20% at 10 ml/hr via peripheral line (PPN provides: 1006 kcal/day, 44 gm protein/day, 0.6 gm CHO/kg/min/day, and 1272 ml free water/day) LP, RD Please refer to Nutrition F/U for details.
--- NOTE | 2018-04-10 16:44 | NUR ---
AMBULANCE ARRANGED Transportation to [facility] set with [facility] ambulance service, [facility]. Scheduled pickle maker time is 8PM today.
[2018-04-10 17:25] VITALS: BP_SYST 114
[2018-04-10] MEDS ORDERED: TPN PERIPHERAL IV SCH ×7 (18:00)
[2018-04-10] MEDS ORDERED: SODIUM ACETATE IV SCH ×7 (18:00)
[2018-04-10] MEDS ORDERED: MVI IV SCH ×7 (18:00)
[2018-04-10] MEDS ORDERED: K PHOS IV SCH ×7 (18:00)
[2018-04-10] MEDS ORDERED: [UNRECOGNIZED DRUG - OTHER] IV SCH ×7 (18:00)
--- NOTE | 2018-04-10 18:25 | NUR ---
CLOSING NOTES Patient awake, alert, sitting up in bed. Patient and family aware of transfer to [facility]. All needs met throughout shift. Bed in lowest position, call light within reach. IV site patent, intact. Will endorse to oncoming RN.
--- NOTE | 2018-04-10 19:21 | NUR ---
TRANSFER REPORT: Report given to ANASTASIIA Vega, Harjinder Lennon
--- NOTE | 2018-04-10 20:00 | NUR ---
DISCHARGE Received patient AAOx4, sitting in bed, in no sign of distress. VSS with respirations nonlabored and oxygen saturation at 99% room air. 22G IV to LFA patent. Patient was provided with pericare and changed to orange linen. Hospital ID band removed and provided with name and only on ID band. IV left to saline lock. Patient discharged to [facility] at [facility] by [facility] ambulance.
== END 2018-04-10 19:57 | DRG 409 ==
LOC: SED 12:11 → STU 15:01 → SIC 04-03 09:45 → STU 04-04 17:01 → SMU 04-05 11:44
PROVIDERS: ADMIT Internal Medicine; ATTEND Internal Medicine
PROC: 0FT44ZZ Resection of Gallbladder, Percutaneous Endoscopic Approach (ICD-10-PCS; 2018-03-26)
PROC: 0WQF4ZZ Repair Abdominal Wall, Percutaneous Endoscopic Approach (ICD-10-PCS; 2018-03-26)
PROC: BF101ZZ Fluoroscopy of Bile Ducts using Low Osmolar Contrast (ICD-10-PCS; 2018-04-02)
PROC: 0F798DZ Dilation of Common Bile Duct with Intraluminal Device, Via Natural or Artificial Opening Endoscopic (ICD-10-PCS; principal; 2018-04-02 07:30)
PROC: 0FQ90ZZ Repair Common Bile Duct, Open Approach (ICD-10-PCS; 2018-04-03)
PROC: BF101ZZ Fluoroscopy of Bile Ducts using Low Osmolar Contrast (ICD-10-PCS; 2018-04-03)
DX: K80.00 Calculus of gallbladder with acute cholecystitis without obstruction (principal); K42.0 Umbilical hernia with obstruction, without gangrene; K91.89 Other postprocedural complications and disorders of digestive system; N28.1 Cyst of kidney, acquired; J44.9 Chronic obstructive pulmonary disease, unspecified; I48.2 Chronic atrial fibrillation; K82.A1 Gangrene of gallbladder in cholecystitis; D72.825 Bandemia; N40.0 Benign prostatic hyperplasia without lower urinary tract symptoms; E66.9 Obesity, unspecified; H40.9 Unspecified glaucoma; K59.00 Constipation, unspecified; Z96.611 Presence of right artificial shoulder joint; I10 Essential (primary) hypertension; K82.8 Other specified diseases of gallbladder; Y83.6 Removal of other organ (partial) (total) as the cause of abnormal reaction of the patient, or of later complication, without mention of misadventure at the time of the procedure; Y92.238 Other place in hospital as the place of occurrence of the external cause; Z87.891 Personal history of nicotine dependence; Z79.899 Other long term (current) drug therapy; Z95.0 Presence of cardiac pacemaker; Z68.28 Body mass index [BMI] 28.0-28.9, adult
CPT/HCPCS: 36415; 36600; 71045; 74160-TC; 74181; 74330-TC; 76000; 76700-TC; 78226; 80053; 80076; 81000-TC; 82803-TC; 82962; 83605; 83690-TC; 83735-TC; 83880; 84100-TC; 84478-TC; 84484; 85007; 85025; 85027; 85610-TC; 85730-TC; 86886; 86900; 86901; 87070; 87070-TC; 87075-TC; 87081; 87186-TC; 87205-TC; 88300; 88304; 93005; 93306; 93970; 94002; 94010; 94640; 94760; 97110-GP; 97116-GP; 97530-GP; A5061; A9537; C1727; C1769; C9113; C9399; G0378; J1100; J1610; J1885; J1940; J2060; J2250; J2270; J2405; J2543; J2704; J3010; J3475; J3480; J3490; J7030; J7050; J7120; J7613; P9046; Q9964; Q9967

== ENCOUNTER 2018-04-24 11:01 | Outpatient (CLI) | payer OTHER, MEDICAID ==
[~2018-04-24 11:01] MED LIST changes: +ALBMDI INH; +CETI1TAB2 PO; +DABI150C PO; +FINA5TAB3 PO; +FURO-149 PO; -GLUCAGON,HUMAN RECOMBINANT 1 MG VIAL IV ONE; +LISI-600 PO; -LR 1,000 ML IV.SOLN IV ONE; +METO25TA3 PO; -MIDAZOLAM HCL 5 MG/5 ML VIAL IVP ONE; +MULT-1117 PO; +POTA8TAB4 PO; +PROM6.25 PO; -PROPOFOL 200MG/ 20ML VIAL (DIPRIVAN) IV ONE; +TAMS-11 PO; -WATER FOR IRRIGATION,STERILE 1,000 ML IRRIG.SOLN IR ONE; +XALEYE OP
[2018-04-24 11:39] LABS: BASOPHILS % (AUTO) 0.7 % (0.0-2.0); EOSINOPHILS # (AUTO) 0.1 K/uL (0.0-0.4); EOSINOPHILS % (AUTO) 1.9 % (0.0-4.0); HEMATOCRIT 38.9 % (36-54); LYMPHOCYTES # (AUTO) 1.8 K/uL (1.0-5.5); MEAN CORPUSCULAR HEMOGLOBIN 28 pg (27-31); MEAN CORPUSCULAR HGB CONC 33 % (32-36); MEAN CORPUSCULAR VOLUME 83 fL (79.0-98.0); MONOCYTES # (AUTO) 0.5 K/uL (0.0-1.0); MONOCYTES % (AUTO) 7.4 % (1.7-9.3); NEUTROPHILS # (AUTO) 4.1 K/uL (1.8-7.7); PLATELET COUNT (AUTO) 264 K/uL (130-430); RED BLOOD CELL COUNT(AUTO) 4.69 MIL/uL (4.2-6.2); RED CELL DISTRIBUTION WIDTH 13.3 % (9.0-15.0); WHITE BLOOD COUNT (AUTO) 6.5 K/uL (4.8-10.8)
[2018-04-24 12:00] LABS: ALANINE AMINOTRANSFERASE 14 U/L (12-78); ALBUMIN 3.1 g/dL (3.4-4.8); ANION GAP 10 (5-15); ASPARTATE AMINOTRANSFERASE 41 U/L (10-37); CALCIUM 9.5 mg/dL (8.4-11.0); CHLORIDE 99 mmol/L (98-107); CREATININE 1.16 mg/dL (0.55-1.30); GLUCOSE 91 mg/dL (70-99); POTASSIUM 3.9 mmol/L (3.5-5.1); SODIUM SERUM 134 mmol/L (136-145); TOTAL BILIRUBIN 1.2 mg/dL (0.0-1.0); UREA NITROGEN, BLOOD 14 mg/dL (8-21)
[2018-04-25] MEDS ORDERED: SIMV10TA2 PO (02:56)
== END 2018-04-24 18:50 | disposition home or self-care (01) ==
LOC: SLB 11:01
PROVIDERS: ATTEND Specialist
DX: R10.9 Unspecified abdominal pain (principal)
CPT/HCPCS: 36415; 80053; 85025

== ENCOUNTER 2018-04-24 22:47 | Inpatient (IN) | payer OTHER, MEDICAID ==
[~2018-04-24] VITALS: Ht 198.1 cm; Wt 99.9 kg
[2018-04-24 23:15] VITALS: BP_SYST 107
[2018-04-25 01:36] LABS: ANION GAP 9 (5-15); CHLORIDE 100 mmol/L (98-107); GLUCOSE 107 mg/dL (70-99); POTASSIUM 3.8 mmol/L (3.5-5.1); SODIUM SERUM 134 mmol/L (136-145); UREA NITROGEN, BLOOD 20 mg/dL (8-21)
[2018-04-25 01:39] LABS: BASOPHILS % (AUTO) 0.6 % (0.0-2.0); EOSINOPHILS # (AUTO) 0.1 K/uL (0.0-0.4); EOSINOPHILS % (AUTO) 2.1 % (0.0-4.0); HEMOGLOBIN 12.3 g/dL (14.0-18.0); LYMPHOCYTES # (AUTO) 1.5 K/uL (1.0-5.5); LYMPHOCYTES % (AUTO) 22.7 % (20.5-51.5); MEAN CORPUSCULAR HEMOGLOBIN 27 pg (27-31); MEAN CORPUSCULAR HGB CONC 32 % (32-36); MEAN CORPUSCULAR VOLUME 84 fL (79.0-98.0); MONOCYTES # (AUTO) 0.5 K/uL (0.0-1.0); NEUTROPHILS # (AUTO) 4.3 K/uL (1.8-7.7); NEUTROPHILS % (AUTO) 66.6 % (40.0-70.0); PLATELET COUNT (AUTO) 219 K/uL (130-430); RED BLOOD CELL COUNT(AUTO) 4.64 MIL/uL (4.2-6.2); RED CELL DISTRIBUTION WIDTH 13.7 % (9.0-15.0); WHITE BLOOD COUNT (AUTO) 6.4 K/uL (4.8-10.8)
[2018-04-25 01:42] LABS: ALANINE AMINOTRANSFERASE 42 U/L (12-78); ALBUMIN 2.9 g/dL (3.4-4.8); ASPARTATE AMINOTRANSFERASE 29 U/L (10-37); BILIRUBIN,DIRECT 0.4 mg/dL (0.0-0.3); TOTAL BILIRUBIN 1.3 mg/dL (0.0-1.0)
[2018-04-25] MEDS ORDERED: ONDANSETRON HCL 4 MG/2 ML VIAL IVP PRN (02:00)
[2018-04-25] MEDS ORDERED: ACETAMINOPHEN 325 MG TABLET PO PRN (02:00)
[2018-04-25] MEDS ORDERED: MORPHINE 4 MG/ML INJ. SYRINGE IVP PRN (02:00)
[2018-04-25 02:18] VITALS: BP_SYST 130
[2018-04-25] MEDS ORDERED: SIMV10TA2 PO (02:56)
[2018-04-25] MEDS ORDERED: NACL 0.9% 1,000 ML IV ONE (03:00)
[2018-04-25] MEDS ORDERED: AMPICILLIN SODIUM/SULBACTAM NA 3 GM VIAL IV SCH (03:00)
[2018-04-25] MEDS ORDERED: AMPICILLIN SODIUM/SULBACTAM NA 3 GM VIAL ONE (04:06)
[2018-04-25 07:38] LABS: BASOPHILS % (AUTO) 0.8 % (0.0-2.0); EOSINOPHILS # (AUTO) 0.2 K/uL (0.0-0.4); EOSINOPHILS % (AUTO) 2.9 % (0.0-4.0); HEMATOCRIT 37.6 % (36-54); HEMOGLOBIN 11.6 g/dL (14.0-18.0); LYMPHOCYTES # (AUTO) 1.5 K/uL (1.0-5.5); LYMPHOCYTES % (AUTO) 28.2 % (20.5-51.5); MEAN CORPUSCULAR HEMOGLOBIN 26 pg (27-31); MEAN CORPUSCULAR HGB CONC 31 % (32-36); MEAN CORPUSCULAR VOLUME 84 fL (79.0-98.0); MONOCYTES # (AUTO) 0.4 K/uL (0.0-1.0); MONOCYTES % (AUTO) 8.3 % (1.7-9.3); NEUTROPHILS # (AUTO) 3.1 K/uL (1.8-7.7); NEUTROPHILS % (AUTO) 59.8 % (40.0-70.0); PLATELET COUNT (AUTO) 221 K/uL (130-430); RED BLOOD CELL COUNT(AUTO) 4.48 MIL/uL (4.2-6.2); RED CELL DISTRIBUTION WIDTH 13.2 % (9.0-15.0); WHITE BLOOD COUNT (AUTO) 5.2 K/uL (4.8-10.8)
[2018-04-25 08:17] LABS: ANION GAP 7 (5-15); CALCIUM 8.9 mg/dL (8.4-11.0); CHLORIDE 104 mmol/L (98-107); CREATININE 0.94 mg/dL (0.55-1.30); GLUCOSE 99 mg/dL (70-99); POTASSIUM 4.5 mmol/L (3.5-5.1); SODIUM SERUM 138 mmol/L (136-145); UREA NITROGEN, BLOOD 16 mg/dL (8-21)
[2018-04-25 08:28] LABS: ALANINE AMINOTRANSFERASE 34 U/L (12-78); ALBUMIN 2.8 g/dL (3.4-4.8); ASPARTATE AMINOTRANSFERASE 27 U/L (10-37); TOTAL BILIRUBIN 1.3 mg/dL (0.0-1.0)
[2018-04-25] MEDS: PANTOPRAZOLE SODIUM 40 MG/VIAL (PROTONIX) IVP SCH (08:49)
[2018-04-25 08:52] VITALS: BP_SYST 122
[2018-04-25] MEDS: AMPICILLIN /SULBACTAM NA 3 GM in NORMAL SALINE 100 ML IV SCH ×2 (11:37→17:24)
[2018-04-25 12:30] VITALS: BP_SYST 134
[2018-04-25 17:01] VITALS: BP_SYST 138
[2018-04-25] MEDS ORDERED: ALBUTEROL SULFATE 0.083% 2.5 MG/3 ML VIAL.NEB INH PRN (19:45)
[2018-04-25 20:44] VITALS: BP_SYST 108; BP_SYST 127
[2018-04-25] MEDS: MULTIVITAMINS TAB 1 TABLET PO SCH (20:49)
[2018-04-25] MEDS: DABIGATRAN ETEXILATE MESYLATE 75 MG CAPSULE PO SCH (20:59)
[2018-04-25] MEDS ORDERED: LATANOPROST 2.5 ML DROPS (XALATAN) OP SCH (21:00)
[2018-04-25] MEDS ORDERED: SIMVASTATIN 10 MG TABLET PO SCH (21:00)
[2018-04-25] MEDS: METOPROLOL SUCCINATE 25 MG TAB.SR.24H (TOPROL XL) PO SCH (21:07)
[2018-04-25 22:00] VITALS: BP_SYST 127
[2018-04-26] MEDS: AMPICILLIN /SULBACTAM NA 3 GM in NORMAL SALINE 100 ML IV SCH ×4 (00:44→17:01)
[2018-04-26 04:24] VITALS: BP_SYST 121
[2018-04-26 07:29] LABS: BASOPHILS % (AUTO) 0.1 % (0.0-2.0); EOSINOPHILS # (AUTO) 0.1 K/uL (0.0-0.4); EOSINOPHILS % (AUTO) 2.3 % (0.0-4.0); HEMATOCRIT 35.7 % (36-54); HEMOGLOBIN 11.2 g/dL (14.0-18.0); LYMPHOCYTES # (AUTO) 1.3 K/uL (1.0-5.5); MEAN CORPUSCULAR HEMOGLOBIN 26 pg (27-31); MEAN CORPUSCULAR HGB CONC 31 % (32-36); MEAN CORPUSCULAR VOLUME 84 fL (79.0-98.0); MONOCYTES # (AUTO) 0.5 K/uL (0.0-1.0); MONOCYTES % (AUTO) 8.1 % (1.7-9.3); NEUTROPHILS # (AUTO) 3.9 K/uL (1.8-7.7); NEUTROPHILS % (AUTO) 67.5 % (40.0-70.0); PLATELET COUNT (AUTO) 196 K/uL (130-430); RED BLOOD CELL COUNT(AUTO) 4.27 MIL/uL (4.2-6.2); RED CELL DISTRIBUTION WIDTH 13.5 % (9.0-15.0); WHITE BLOOD COUNT (AUTO) 5.8 K/uL (4.8-10.8)
[2018-04-26 07:50] LABS: ALANINE AMINOTRANSFERASE 42 U/L (12-78); ALBUMIN 2.5 g/dL (3.4-4.8); ANION GAP 8 (5-15); ASPARTATE AMINOTRANSFERASE 37 U/L (10-37); CALCIUM 8.8 mg/dL (8.4-11.0); CHLORIDE 103 mmol/L (98-107); GLUCOSE 95 mg/dL (70-99); POTASSIUM 3.8 mmol/L (3.5-5.1); SODIUM SERUM 135 mmol/L (136-145); TOTAL BILIRUBIN 1.2 mg/dL (0.0-1.0); UREA NITROGEN, BLOOD 13 mg/dL (8-21)
[2018-04-26 08:00] VITALS: BP_SYST 133
[2018-04-26] MEDS: MULTIVITAMINS TAB 1 TABLET PO SCH (09:00)
[2018-04-26] MEDS ORDERED: LISINOPRIL 20 MG TABLET PO SCH (09:00)
[2018-04-26] MEDS: METOPROLOL SUCCINATE 25 MG TAB.SR.24H (TOPROL XL) PO SCH (09:00)
[2018-04-26] MEDS ORDERED: FUROSEMIDE 40 MG TABLET PO SCH (09:00)
[2018-04-26] MEDS ORDERED: FINASTERIDE 5 MG TABLET (PROSCAR) PO SCH (09:00)
[2018-04-26] MEDS: PANTOPRAZOLE SODIUM 40 MG/VIAL (PROTONIX) IVP SCH (09:00)
[2018-04-26] MEDS ORDERED: POTASSIUM CHLORIDE 10 MEQ TAB.PRT.SR PO SCH (09:00)
[2018-04-26] MEDS: DABIGATRAN ETEXILATE MESYLATE 75 MG CAPSULE PO SCH (09:00)
[2018-04-26 12:32] VITALS: BP_SYST 106
[2018-04-26 15:46] VITALS: BP_SYST 131
[2018-04-26 17:07] VITALS: BP_SYST 149
== END 2018-04-26 18:15 | disposition home or self-care (01) | DRG 392 ==
LOC: SED 22:47 → SMU 04-25 01:55
PROVIDERS: ADMIT Internal Medicine; ATTEND Internal Medicine
DX: R10.9 Unspecified abdominal pain (principal); E78.5 Hyperlipidemia, unspecified; N40.0 Benign prostatic hyperplasia without lower urinary tract symptoms; I48.2 Chronic atrial fibrillation; J44.9 Chronic obstructive pulmonary disease, unspecified; I50.9 Heart failure, unspecified; I11.0 Hypertensive heart disease with heart failure; Y83.8 Other surgical procedures as the cause of abnormal reaction of the patient, or of later complication, without mention of misadventure at the time of the procedure; K74.60 Unspecified cirrhosis of liver; Z90.49 Acquired absence of other specified parts of digestive tract; Y92.89 Other specified places as the place of occurrence of the external cause; Z95.0 Presence of cardiac pacemaker; Z79.899 Other long term (current) drug therapy
CPT/HCPCS: 36415; 76705; 78226; 80053; 80076; 85025; 87081; 99285; A9537; C9113; J0295; J7030; J7060